=== PATIENT | male | born 1965 | race Caucasian/White ===

== ENCOUNTER 2020-11-05 07:52 | Outpatient (REF) | payer BC, SELFPAY ==
[2020-11-05 11:43] LABS: Estimated Average Glucose 100 mg/dL; Hemoglobin A1c % 5.1 %
[2020-11-05 11:47] LABS: Cholesterol 267 mg/dL; Glucose Fasting 104 mg/dL (60-99); HDL Cholesterol 70 mg/dL; LDL Cholesterol Calculated 179 mg/dl; Triglycerides 92 mg/dL
[2020-11-05 12:42] LABS: Reflex LDLD? No
== END 2020-11-05 07:53 | disposition home or self-care (01) ==
LOC: HO.HMGCLDS 07:52
PROVIDERS: PCP Internal Medicine; Visit Provider Internal Medicine
DX: E78.00 Pure hypercholesterolemia, unspecified (principal); R73.09 Other abnormal glucose
CPT/HCPCS: 80061; 82947; 83036

== ENCOUNTER 2021-05-11 09:44 | Outpatient (REF) | payer BC, SELFPAY ==
[2021-05-11 09:47] LABS: MANUAL DIFF FLAG NO
[2021-05-11 10:13] LABS: Basophils Percent Auto 0.8 % (0-2); Eosinophils Absolute Auto 0.1 X10*3/uL (0.0-0.4); Eosinophils Percent Auto 3.4 % (0-4); Hemoglobin 14.9 g/dl (14.0-18.0); Imm Gran Abs Auto 0.01 X10*3/uL (0.00-0.03); Imm Gran Pct Auto 0.3 % (0.0-0.4); Lymphocytes Absolute Auto 1.1 X10*3/uL (1.2-4.9); Lymphocytes Percent Auto 27.7 % (20-40); Mean Corpuscular HGB Conc 33.9 g/dl (31.0-36.0); Mean Corpuscular Hemoglobin 30.3 pg (27.0-33.0); Mean Corpuscular Volume 89.6 fL (80-98); Mean Platelet Volume 9.8 fL (9.4-12.4); Monocytes Absolute Auto 0.3 X10*3/uL (0.1-1.2); Monocytes Percent Auto 8.4 % (2-11); Neutrophils Absolute Auto 2.3 X10*3/uL (2.0-8.3); Neutrophils Percent Auto 59.4 % (45-73); Platelet Count 271 X10*3/uL (160-400); Red Blood Count 4.91 X10*6/uL (4.60-5.80); Red Cell Distribution Width 12.4 % (11.0-16.0); White Blood Count 3.8 X10*3/uL (4.8-10.8)
[2021-05-11 10:27] LABS: Estimated Average Glucose 103 mg/dL; Hemoglobin A1c % 5.2 %
[2021-05-11 11:01] LABS: Glucose Urine UA NEG (NEG); Leukocyte Esterase Urine NEG (NEG); Nitrite Urine NEG (NEG); PH 6.5 (5.0-8.0); Urine Blood NEG (NEG); Urine Ketones NEG (NEG); Urine Protein NEG (NEG-TRACE)
[2021-05-11 11:04] LABS: Appearance Urine CLEAR; Color Urine YELLOW
[2021-05-11 11:19] LABS: Alanine Aminotransferase 19 U/L (0-40); Albumin Level 4.3 g/dL (3.5-5.0); Alkaline Phosphatase 68 U/L (39-117); Anion Gap 14 (12-20); Aspartate Amino Transferase 19 U/L (5-37); Bilirubin Total 0.7 mg/dL (0.0-1.0); Blood Urea Nitrogen 18 mg/dL (9-16); Calcium 9.1 mg/dL (8.4-10.2); Carbon Dioxide 25 mmol/L (22-29); Chloride 105 mmol/L (96-108); Cholesterol 253 mg/dL; Estimated Glomerular Filt Rate > 60; Glucose Fasting 128 mg/dL (60-99); HDL Cholesterol 86 mg/dL; LDL Cholesterol Calculated 148 mg/dl; Potassium 4.6 mmol/L (3.3-5.1); Sodium 139 mmol/L (135-145); Total Protein 6.8 g/dL (6.5-8.0); Triglycerides 96 mg/dL
[2021-05-11 11:40] LABS: PSA,Total (Free>4and<10) 0.47 ng/mL (0.00-4.00)
[2021-05-11 11:47] LABS: Creatinine Urine 235.53 mg/dL; Microalbum/Creatinine Ratio Ur 3.8 ug/mg cr
== END 2021-05-11 09:45 | disposition home or self-care (01) ==
LOC: HO.LNP 09:44
PROVIDERS: Visit Provider Internal Medicine
DX: Z00.00 Encounter for general adult medical examination without abnormal findings (principal); Z12.5 Encounter for screening for malignant neoplasm of prostate; I10 Essential (primary) hypertension; R73.03 Prediabetes; E78.00 Pure hypercholesterolemia, unspecified
CPT/HCPCS: 80053; 80061; 81003; 82043; 83036; 84153; 85025

== ENCOUNTER 2021-07-02 12:18 | Emergency (ER) | payer BC, SELFPAY ==
--- NOTE | ~2021-07-02 | XR_ITS ---
EXAMINATION: XR RIBS, LEFT CLINICAL INFORMATION: Trauma, pain COMPARISON: Chest radiographs 07/01/2009 TECHNIQUE: Frontal view chest and 3 views left ribs are obtained for 4 views. FINDINGS: There is an oblique fracture involving the left posterior lateral 9th rib only visible on one of the rib films. No significant displacement. No destructive process. The remainder of the ribs appear intact. The lungs are clear. There is no pneumothorax or pleural reaction. No infiltrate or effusion. The heart is normal in size. Tapering at the cardiophrenic angles is similar to prior remote chest 2009. The hilar and mediastinal contours are unremarkable. No free air beneath the diaphragms. XR/XR ribs LT min 3V w CXR1V IMPRESSION: 1. Fracture left posterior lateral 9th rib. 2. Lungs clear. No pneumothorax, infiltrate, or effusion.
[2021-07-02 13:04] VITALS: BP 131/99; PULSE 76; RESP 16; TEMP 36.9; O2SAT 96; BMI 26.3
--- NOTE | 2021-07-02 13:59 | ED_ITS ---
HPI - General Adult General Chief complaint: General Medical Stated complaint: pt might have broken ribs Time Seen by Provider: 07/02/21 13:52 Source: patient Mode of arrival: ambulatory Limitations: no limitations History of Present Illness HPI narrative: Patient presents to ED for left posterior rib pain. Patient states on Monday while playing baseball he was hit with a baseball due to a pitch. Patient states pain ever since with range of motion. Patient denies any other trauma. Patient denies coughing up blood Related Data Previous Rx's Medication Instructions Recorded naproxen 500 mg tablet 500 mg PO BID PRN #20 tab 07/02/21 tramadol 50 mg tablet 50 mg PO Q6H PRN #12 tab 07/02/21 Allergies Allergy/AdvReac Type Severity Reaction Status Date / Time codeine [CODEINE] Allergy Intermediate VOMITING Verified 07/02/21 13:07 Review of Systems Review of Systems: Yes all other systems are reviewed and are negative Constitutional: Constitutional: Reports as per HPI and Reports no additional constitutional complaints Eyes: Eyes: Reports as per HPI and Reports no additional eye complaints ENT: Reports system reviewed and no additional complaints, except as documented and Reports as per HPI Cardiovascular: Cardiovascular: Reports as per HPI and Reports no additional cardiovascular complaints Comments: Posterior rib pain Respiratory: Respiratory: Reports as per HPI and Reports no additional respiratory complaints Gastrointestinal: Gastrointestinal: Reports as per HPI and Reports no additional gastrointestinal complaints Musculoskeletal: Musculoskeletal: Reports no additional musculoskeletal complaints and Reports as per HPI Neurologic: Reports system reviewed and no additional complaints, except as documented and Reports as per HPI Psychiatric: Psychiatric: Reports no additional psychiatric complaints and Reports as per HPI [facility] Past Medical History Medical History (Updated 07/02/21 @ 14:07 by MARLEE Mosher) Hypertension No known health problems Social History Social History Advance Directives: Yes Advance Directives Information Provided: Yes Advance Directives on File: No Physical Exam Vital Signs: Vital Signs: Last Vital Signs Temp 98.4 F 07/02/21 13:04 Pulse 76 07/02/21 13:04 Resp 16 07/02/21 13:04 BP 131/99 H 07/02/21 13:04 Pulse Ox 96 07/02/21 13:04 Body Mass Index 26.3 Const: General: cooperative, healthy appearing, comfortable, no acute distress, well developed, alert, awake and Physically active Orientation/consciousness: patient oriented x3 HENMT: Head: Yes normal to inspection, Yes No palpable skull fracture present, Yes normocephalic, Yes atraumatic and No abrasion Eyes: General: appearance normal, both eyes and all related structures Neck: Neck: Yes normal visual inspection, Yes full ROM, Yes no lymphadenopathy, Yes no meningeal signs, Yes trachea midline, Yes supple and No tender Chest: Chest palpation & inspection: normal inspection of the chest and normal palpation of entire chest wall Resp: Effort & Inspection: normal respiratory effort and able to speak in complete sentences Auscultation: clear to auscultation bilaterally Cardio: Jugular venous distension: no JVD Heart sounds: S1 normal heart sound present and S2 normal heart sound present GI: Inspection: Yes normal to inspection and No abdominal wall ecchymosis Palpation (GI): Soft to palpation, not firm, nontender, no guarding and not rigid : General: Yes no CVA tenderness Back/Spine/Pelvis: Back: no CVA tenderness and back tenderness (Left posterior rib pain) Back/spine/pelvis image: 1. Positive for tenderness and ecchymosis. Negative for crepitus or obvious deformity on palpation Skin: Other: Left posterior rib ecchymosis General skin exam: no rashes or lesions noted and elasticity normal Neuro: General: patient oriented x3, gait normal, no meningeal signs and CN's II-XI intact bilaterally Cranial nerves: Yes CN's II-XII intact bilaterally Extrem: General: Yes normal to inspection and Yes full ROM Psych: Appearance: grossly normal, well kempt and not disheveled Course Course Course Narrative: Patient sent for x-ray. Reevaluation(s) Reevaluation #1: X-ray shows left 9th rib fracture. Patient to be discharged with incentive spirometry and pain meds Time: 14:06 Medical Decision Making [facility] Narrative Medical decision making narrative: Rib fracture Discharge Plan Discharge Clinical Impression: Fracture of rib Patient Disposition: Home, Self-Care Instructions: Rib Fracture (ED) Additional Instructions: X-ray shows you have a rib fracture. Please use the incentive spirometer every hour to prevent lungs collapse. Return to the ED immediately for any worsening chest pain, coughing up blood, abdominal pain, shortness of breath, or any other concerning symptoms. Please follow-up with PCP Prescriptions: New tramadol 50 mg tablet 50 mg PO Q6H PRN (Reason: pain) Qty: 12 RF: 0 naproxen 500 mg tablet 500 mg PO BID PRN (Reason: pain) Qty: 20 RF: 0 Print Language: Hungarian
== END 2021-07-02 14:35 | disposition home or self-care (01) ==
PROVIDERS: Emergency Provider Emergency Medicine Emergency Medical Services; PCP Internal Medicine
DX: S22.32XA Fracture of one rib, left side, initial encounter for closed fracture (principal); W21.03XA Struck by baseball, initial encounter; Y93.64 Activity, baseball; Y92.9 Unspecified place or not applicable; Y99.9 Unspecified external cause status
CPT/HCPCS: 71101; 99283

== ENCOUNTER 2023-01-02 10:35 | Outpatient (REF) | payer BC, SELFPAY ==
[2023-01-02 10:40] LABS: MANUAL DIFF FLAG NO
[2023-01-02 11:21] LABS: Basophils Percent Auto 0.9 % (0-2); Eosinophils Absolute Auto 0.1 X10*3/uL (0.0-0.4); Hematocrit 47.2 % (42.0-52.0); Imm Gran Abs Auto 0.01 X10*3/uL (0.00-0.03); Imm Gran Pct Auto 0.2 % (0.0-0.4); Lymphocytes Absolute Auto 1.1 X10*3/uL (1.2-4.9); Lymphocytes Percent Auto 25.4 % (20-40); Mean Corpuscular HGB Conc 33.9 g/dl (31.0-36.0); Mean Corpuscular Volume 88.6 fL (80.0-98.0); Mean Platelet Volume 9.5 fL (9.4-12.4); Monocytes Absolute Auto 0.3 X10*3/uL (0.1-1.2); Monocytes Percent Auto 7.6 % (2-11); Neutrophils Absolute Auto 2.8 x10*3/uL (2.0-8.3); Neutrophils Percent Auto 62.9 % (45-73); Platelet Count 286 X10*3/uL (160-400); Red Blood Count 5.33 X10*6/uL (4.60-5.80); Red Cell Distribution Width 12.9 % (11.0-16.0); White Blood Count 4.4 X10*3/uL (4.8-10.8)
[2023-01-02 11:55] LABS: Appearance Urine Clear; Color Urine Yellow; Glucose Urine UA Negative (Negative); Leukocyte Esterase Urine Negative (Negative); Nitrite Urine Negative (Negative); PH 5.5 (5.0-9.0); Specific Gravity - Urine 1.025 (1.005-1.025); Urine Blood Negative (Negative); Urine Ketones Negative (Negative); Urine Protein Negative (Neg-Trace)
[2023-01-02 12:08] LABS: Estimated Average Glucose 100 mg/dL; Hemoglobin A1c % 5.1 %
[2023-01-02 12:22] LABS: Creatinine Urine 215.73 mg/dL; Microalbum/Creatinine Ratio Ur 3.2 ug/mg cr
[2023-01-02 12:34] LABS: Alanine Aminotransferase 18 U/L (0-40); Albumin Level 4.4 g/dL (3.5-5.0); Alkaline Phosphatase 66 U/L (39-117); Anion Gap 11 (12-20); Aspartate Amino Transferase 18 U/L (5-37); Bilirubin Total 0.9 mg/dL (0.0-1.0); Blood Urea Nitrogen 16 mg/dL (9-16); Calcium 9.3 mg/dL (8.4-10.2); Carbon Dioxide 28 mmol/L (22-29); Chloride 105 mmol/L (96-108); Cholesterol 273 mg/dL; Estimated Glomerular Filt Rate > 60; Glucose Fasting 113 mg/dL (60-99); HDL Cholesterol 76 mg/dL; LDL Cholesterol Calculated 182 mg/dl; Potassium 4.3 mmol/L (3.3-5.1); Sodium 140 mmol/L (135-145); Triglycerides 75 mg/dL
[2023-01-02 12:38] LABS: PSA,Total (Free>4and<10) 0.56 ng/mL (0.00-4.00)
== END 2023-01-02 10:36 | disposition home or self-care (01) ==
LOC: HO.LNP 10:35
PROVIDERS: Visit Provider Internal Medicine
DX: Z00.00 Encounter for general adult medical examination without abnormal findings (principal); Z12.5 Encounter for screening for malignant neoplasm of prostate; I10 Essential (primary) hypertension; R73.03 Prediabetes; E78.00 Pure hypercholesterolemia, unspecified
CPT/HCPCS: 80053; 80061; 81003; 82043; 83036; 84153; 85025

== ENCOUNTER 2023-02-23 07:22 | Emergency (ER) | payer BC, SELFPAY ==
--- NOTE | ~2023-02-23 | CT_ITS ---
EXAMINATION: CT CHEST WITHOUT CONTRAST CLINICAL INFORMATION: Right-sided traumatic pain COMPARISON: None available. TECHNIQUE: Multidetector volumetric CT imaging of the chest was done. Axial MIP volume rendering provided. Sagittal and coronal reformatted images were obtained. This CT examination was performed using dose optimization techniques as appropriate, variously including the following: *Automated exposure control *Adjustment of mA and/or kV according to patient size (this includes techniques or standardized protocols for targeted exams where dose is matched to indication/reason for exam; i.e. extremities or head) *Use of iterative reconstruction technique DLP: 304 mGy-cm FINDINGS: LUNGS/PLEURA: Groundglass focus versus atelectasis along the posterior aspect of the left upper lobe/left major fissure (series 5, image 110) measuring 7 mm. 3 mm subpleural nodule in the lateral aspect of the lingula (series 5, image 290). Central airways are patent. No pneumothorax. Left basilar atelectasis. No large pleural effusion. MEDIASTINUM: Heart is not enlarged. No pericardial effusion. Very mild coronary artery calcium lesions are noted. Aorta is nonaneurysmal. Main pulmonary artery is not enlarged. No enlarged lymph nodes per size criteria. Visualized portions of the thyroid are unremarkable AXILLA: No lymphadenopathy. UPPER ABDOMEN: Unremarkable. OSSEOUS STRUCTURES: Mildly displaced fracture involving the right posterior sixth rib (series 5, image 148). CT/CT chest wo IV con IMPRESSION: 1. Mildly displaced fracture involving the right posterior sixth rib. 2. Groundglass focus versus atelectasis along the posterior aspect of the left upper lobe/left major fissure measuring 7 mm. 3 mm subpleural nodule in the lateral aspect of the lingula. Follow-up as per Fleischner criteria. Various management parameters for solitary pulmonary nodules are in the literature. According to the Fleischner Society, recommendations for pulmonary nodules are as follows: According to the UPDATED 2017 Fleischner Society recommendations, the advised follow-up imaging for solid nodules < 6 mm is: LOW RISK PATIENT: No routine follow-up. HIGH RISK PATIENT: Optional CT at 12 months.
[2023-02-23 07:39] VITALS: BP 142/89; PULSE 73; RESP 18; TEMP 36.6; O2SAT 99; BMI 26.3
--- NOTE | 2023-02-23 07:44 | PC.NURSE ---
Pt is alert/oriented. Reports fall while snowboarding Monday with persistent right side chest/rib pain unrelieved by rest and motrin. Breathing even/unlabored with clear lung sounds throughout. Skin pwd. Speaking full sentences. Awaiting ED provider
[2023-02-23 08:13] VITALS: BP 147/87; PULSE 68; RESP 17; O2SAT 98
--- NOTE | 2023-02-23 08:36 | ED_ITS ---
HPI - General Adult General Chief complaint: Fall Stated complaint: broken ribs? / fell couple days ago Time Seen by Provider: 02/23/23 08:02 Source: patient Mode of arrival: ambulatory Limitations: no limitations History of Present Illness HPI narrative: 57-year-old male presents after an accidental fall while snowboarding. He fell onto the right side of his body. Since then he has had intermittent right chest and upper back pain. Pain has been moderate. It is worse with movement and palpation. He has been taking ibuprofen successfully with relief. He denies any radiation, shortness of breath, cough or mucus production. Denies any other injuries. Over the past 24 hours, however, he heard a cracking sensation in developed some shortness of breath with deep inspiration, more severe pain rated as 7 to 8/10. Pain is worse with movement. Does not radiate. He denies any new falls or injuries. Prior treatment included ibuprofen just prior to arrival which moderate is pain to a 4/10. Related Data Previous Rx's Medication Instructions Recorded naproxen 500 mg tablet 500 mg PO BID PRN pain #20 tabs 07/02/21 tramadol 50 mg tablet 50 mg PO Q6H PRN pain #12 tabs 07/02/21 oxycodone 5 mg tablet 5 mg PO Q8H PRN pain #10 tabs 02/23/23 Allergies Allergy/AdvReac Type Severity Reaction Status Date / Time codeine [CODEINE] Allergy Intermediate VOMITING Verified 07/02/21 13:07 [facility] Past Medical History Medical History Hypertension No known health problems Social History Social History Alcohol intake: current Smoked in Last 30 Days: No Use of substances other than those prescribed or required for medical reasons: Yes Substance Use Type: Marijuana Advance Directives: No Advance Directives Information Provided: Yes Physical Exam ED Vital Signs: Vital Signs - 24 hr 02/23/23 07:39 02/23/23 08:13 02/23/23 10:10 Temperature 97.8 F Pulse Rate 73 68 59 Respiratory Rate 18 17 19 Blood Pressure 142/89 H 147/87 H 134/83 Pulse Oximetry 99 98 99 Oxygen Delivery Method Room Air Room Air Room Air BMI result Body Mass Index 26.3 GEN: Well developed, no acute distress, alert, oriented HEENT: Normocephalic, atraumatic, normal external ears, nose appears normal, no oropharyngeal edema or exudates Eyes: Normal to appearance Neck: Supple, no lymphadenopathy Respiratory: Talks in complete sentences, no respiratory distress, clear to a uscultation bilaterally Cardiovascular: Regular rate and rhythm, no murmurs rubs or gallops Abdomen: Soft, nontender, nondistended, no guarding, no rebound Back: No CVA tenderness Extremities: No clubbing cyanosis or edema Neurologic: No focal neurologic deficits, cranial nerves 2-12 intact, strength is 5/5 bilaterally, gait normal Skin: No rash Chest: Anterior upper chest wall tenderness to palpation as well as right paraspinous and trapezius tenderness Course Course Course Narrative: 57-year-old male presents with acute traumatic pain. Examination revealed tenderness to palpation. His lungs were clear to auscultation bilaterally. Doubt pneumothorax or pulmonary contusion. However, given acute exacerbation of pain from his trauma, will obtain a CT scan to rule out pulmonary contusion, rib fracture, chest wall contusion, chest wall pain, rib fracture. Patient does not want any analgesics at this time Reevaluation(s) Reevaluation #1: Discussed results with patient. Aware of the pulmonary nodule. Time: 10:31 Medical Decision Making Medical Decision Making MDM Narrative: 57-year-old male presents with 1 week of traumatic chest pain and back pain. Examination revealed tenderness to palpation. Otherwise, patient was no acute distress, hemodynamically stable, normal oxygen saturation. I suspect patient has either rib fracture or chest wall contusion. However, given the acute exacerbation of pain, will obtain a CT scan to rule out pneumothorax, pulmonary contusion or other more significant etiology of his symptoms. Patient does not wish for any analgesics at this time. He did take ibuprofen just prior to arrival. We can give patient Tylenol if need be. Differential Diagnosis Differential Diagnoses: The differential diagnosis associated with the presentation includes (Fracture, contusion, pulmonary contusion, hematoma, musculoskeletal pain, costochondritis, strain, sprain) Pulmonary nodule, rib fracture Admission/Observation Consideration of admission/observation: Escalation of care including admission/observation considered Independent Interpretation I performed an independent interpretation of an: CT Scan (No pneumothorax or pulmonary contusion) Radiology Impression Discussion of test interpretation with radiology: I have reviewed the radiologist's reading. ( CT/CT chest wo IV con IMPRESSION: 1. Mildly displaced fracture involving the right posterior sixth rib. 2. Groundglass focus versus atelectasis along the posterior aspect of the left upper lobe/left major fissure measuring 7 mm. 3 mm subpleural nodule in the lateral aspect of th) Prescription Management I considered prescription management with: Pain Medication Discharge Plan Discharge Clinical Impression: Blunt chest trauma, Fracture of rib, Pulmonary nodule Patient Disposition: Home, Self-Care Instructions: Rib Fracture (ED), Pulmonary Nodules (ED), Blunt Chest Trauma (ED) Prescriptions: New oxycodone 5 mg tablet 5 mg PO Q8H PRN (Reason: pain) Qty: 10 0RF Rx Instructions: Partial Fill upon patient request. No Action tramadol 50 mg tablet 50 mg PO Q6H PRN (Reason: pain) Qty: 12 0RF naproxen 500 mg tablet 500 mg PO BID PRN (Reason: pain) Qty: 20 0RF Referrals: Parviz Hair MD [Primary Care Provider] - 1 week
--- NOTE | 2023-02-23 09:26 | PC.NURSE ---
Pt returned to room from CT scan, no acute changes, awaits results
[2023-02-23 10:10] VITALS: BP 134/83; PULSE 59; RESP 19; O2SAT 99
== END 2023-02-23 11:06 | disposition home or self-care (01) ==
PROVIDERS: Emergency Provider Emergency Medicine; PCP Internal Medicine
DX: S20.211A Contusion of right front wall of thorax, initial encounter (principal); S22.31XA Fracture of one rib, right side, initial encounter for closed fracture; W17.81XA Fall down embankment (hill), initial encounter; R91.1 Solitary pulmonary nodule; I10 Essential (primary) hypertension; Y93.23 Activity, snow (alpine) (downhill) skiing, snowboarding, sledding, tobogganing and snow tubing; Y92.828 Other wilderness area as the place of occurrence of the external cause; Y99.9 Unspecified external cause status
CPT/HCPCS: 71250; 99284

== ENCOUNTER 2023-07-10 13:58 | Outpatient (REF) | payer BC, SELFPAY ==
[2023-07-10 14:48] LABS: Cholesterol 278 mg/dL; HDL Cholesterol 86 mg/dL; LDL Cholesterol Calculated 177 mg/dl; Triglycerides 79 mg/dL
== END 2023-07-10 13:59 | disposition home or self-care (01) ==
LOC: HO.LNP 13:58
PROVIDERS: Visit Provider Internal Medicine
DX: E78.00 Pure hypercholesterolemia, unspecified (principal)
CPT/HCPCS: 80061

== ENCOUNTER 2023-09-22 12:15 | Outpatient (REF) | payer BC, SELFPAY ==
[2023-09-22 14:48] LABS: Blood Urea Nitrogen 12 mg/dL (9-16); Estimated Glomerular Filt Rate > 60
== END 2023-09-22 12:16 | disposition home or self-care (01) ==
LOC: HO.LNP 12:15
PROVIDERS: Visit Provider Internal Medicine
DX: I10 Essential (primary) hypertension (principal)
CPT/HCPCS: 82565; 84520

== ENCOUNTER 2023-09-29 07:50 | Outpatient (REF) | payer BC, SELFPAY ==
--- NOTE | ~2023-09-29 | CT_ITS ---
EXAMINATION: CT CHEST WITH CONTRAST CLINICAL INFORMATION: Lung nodule COMPARISON: Previous chest CT January 2023 and chest and left rib x-rays from 2010 TECHNIQUE: Multidetector volumetric CT imaging of the chest was obtained after the administration of 65 mL of Omnipaque 350 intravenous contrast without immediate adverse reactions. Axial MIP volume rendering provided. Sagittal and coronal reformatted images were obtained. This CT examination was performed using dose optimization techniques as appropriate, variously including the following: *Automated exposure control *Adjustment of mA and/or kV according to patient size (this includes techniques or standardized protocols for targeted exams where dose is matched to indication/reason for exam; i.e. extremities or head) *Use of iterative reconstruction technique DLP: 149 mGy-cm FINDINGS: SOFTWARE DEVELOPMENT COORDINATOR: Unremarkable LUNGS: 3 mm nodule in the lingula axial image 139 series 5. The lungs are otherwise clear. Previously identified atelectatic versus groundglass area in the apical posterior segment of the left upper lobe adjacent to the pleural fissure no longer seen. No endobronchial or endotracheal lesion. MEDIASTINUM: The mediastinum is normal. PLEURA: There is no pleural effusion. No pleural mass or thickening. AXILLA: No lymphadenopathy. UPPER ABDOMEN: Unremarkable OSSEOUS STRUCTURES: Old right rib fractures. CT/CT chest w IV con IMPRESSION: Stable 3 mm lingular pulmonary nodule. Groundglass attenuation versus atelectatic area in the apical posterior segment of the left upper lobe near the pleural fissure no longer seen. According to the UPDATED 2017 Fleischner Society recommendations, chest CT follow-up not recommended. Fleischner guidelines were followed.
[2023-09-29] MEDS: iohexoL 350 MG/ML 100 ML INFUS..BTL IV (08:59)
== END 2023-09-29 07:51 | disposition home or self-care (01) ==
LOC: HO.CT 07:50
PROVIDERS: PCP Internal Medicine; Visit Provider Internal Medicine
DX: R91.1 Solitary pulmonary nodule (principal)
CPT/HCPCS: 71260; Q9967

== ENCOUNTER 2024-05-03 12:56 | Outpatient (REF) | payer BC, SELFPAY ==
[2024-05-03 13:02] LABS: MANUAL DIFF FLAG NO
[2024-05-03 13:29] LABS: Appearance Urine Clear; Color Urine Yellow; Glucose Urine UA Negative (Negative); Leukocyte Esterase Urine Negative (Negative); Nitrite Urine Negative (Negative); Specific Gravity - Urine 1.025 (1.005-1.025); Urine Blood Negative (Negative); Urine Ketones Negative (Negative); Urine Protein Negative (Neg-Trace)
[2024-05-03 13:30] LABS: Eosinophils Absolute Auto 0.1 X10*3/uL (0.0-0.4); Eosinophils Percent Auto 2.9 % (0-4); Hematocrit 43.7 % (42.0-52.0); Hemoglobin 14.7 g/dl (14.0-18.0); Imm Gran Abs Auto 0.02 X10*3/uL (0.00-0.03); Imm Gran Pct Auto 0.5 % (0.0-0.4); Lymphocytes Absolute Auto 1.1 X10*3/uL (1.2-4.9); Lymphocytes Percent Auto 25.9 % (20-40); Mean Corpuscular HGB Conc 33.6 g/dl (31.0-36.0); Mean Corpuscular Hemoglobin 30.7 pg (27.0-33.0); Mean Corpuscular Volume 91.2 fL (80.0-98.0); Mean Platelet Volume 9.5 fL (9.4-12.4); Monocytes Absolute Auto 0.3 X10*3/uL (0.1-1.2); Monocytes Percent Auto 8.2 % (2-11); Neutrophils Absolute Auto 2.6 x10*3/uL (2.0-8.3); Neutrophils Percent Auto 61.5 % (45-73); Platelet Count 273 X10*3/uL (160-400); Red Blood Count 4.79 X10*6/uL (4.60-5.80); Red Cell Distribution Width 12.7 % (11.0-16.0); White Blood Count 4.2 X10*3/uL (4.8-10.8)
[2024-05-03 13:32] LABS: Bacteria Urine None Seen (None Seen); Hyaline Casts Urine 0-2 /LPF (0-2); RBC Urine 0-2 /HPF (0-2); Squamous Epithelial Cell Urine 0-2 /HPF (0-2); WBC Urine 0-5 /HPF (0-5)
[2024-05-03 13:39] LABS: Estimated Average Glucose 103 mg/dL; Hemoglobin A1c % 5.2 % (<6.0)
[2024-05-03 13:48] LABS: Alanine Aminotransferase 15 U/L (0-40); Albumin Level 4.1 g/dL (3.5-5.0); Alkaline Phosphatase 64 U/L (39-117); Anion Gap 10 (12-20); Aspartate Amino Transferase 17 U/L (5-37); Bilirubin Total 0.5 mg/dL (0.0-1.0); Blood Urea Nitrogen 14 mg/dL (9-16); Calcium 9.3 mg/dL (8.4-10.2); Carbon Dioxide 29 mmol/L (22-29); Chloride 106 mmol/L (96-108); Cholesterol 231 mg/dL (<200); Estimated Glomerular Filt Rate > 60; Glucose Fasting 103 mg/dL (60-99); HDL Cholesterol 84 mg/dL (>40); LDL Cholesterol Calculated 136 mg/dL (<100); Potassium 4.4 mmol/L (3.3-5.1); Sodium 141 mmol/L (135-145); Total Protein 6.8 g/dL (6.5-8.0); Triglycerides 57 mg/dL (<150)
[2024-05-03 14:03] LABS: PSA,Total (Free>4and<10) 0.84 ng/mL (0.00-4.00)
[2024-05-03 14:20] LABS: Creatinine Urine 175.18 mg/dL; Microalbum/Creatinine Ratio Ur 3.9 ug/mg cr (<30)
== END 2024-05-03 12:57 | disposition home or self-care (01) ==
LOC: HO.LNP 12:56
PROVIDERS: Visit Provider Internal Medicine
DX: Z00.00 Encounter for general adult medical examination without abnormal findings (principal); R73.09 Other abnormal glucose; E78.00 Pure hypercholesterolemia, unspecified; Z12.5 Encounter for screening for malignant neoplasm of prostate; I10 Essential (primary) hypertension
CPT/HCPCS: 80053; 80061; 81001; 82043; 82570; 83036; 84153; 85025

== ENCOUNTER 2025-05-06 09:52 | Outpatient (REF) | payer BC, SELFPAY ==
[2025-05-06 09:54] LABS: MANUAL DIFF FLAG NO
[2025-05-06 10:07] LABS: Appearance Urine Clear; Basophils Absolute Auto 0.1 X10*3/uL (0.0-0.2); Basophils Percent Auto 1.1 % (0-2); Color Urine Yellow; Eosinophils Absolute Auto 0.2 X10*3/uL (0.0-0.4); Eosinophils Percent Auto 3.7 % (0-4); Glucose Urine UA Negative (Negative); Hematocrit 43.3 % (42.0-52.0); Hemoglobin 14.8 g/dl (14.0-18.0); Imm Gran Abs Auto 0.01 X10*3/uL (0.00-0.03); Imm Gran Pct Auto 0.2 % (0.0-0.4); Leukocyte Esterase Urine Negative (Negative); Lymphocytes Absolute Auto 1.1 X10*3/uL (1.2-4.9); Lymphocytes Percent Auto 26.2 % (20-40); Mean Corpuscular HGB Conc 34.2 g/dl (31.0-36.0); Mean Corpuscular Hemoglobin 30.1 pg (27.0-33.0); Mean Platelet Volume 9.6 fL (9.4-12.4); Monocytes Absolute Auto 0.3 X10*3/uL (0.1-1.2); Monocytes Percent Auto 7.6 % (2-11); Neutrophils Absolute Auto 2.7 x10*3/uL (2.0-8.3); Neutrophils Percent Auto 61.2 % (45-73); Nitrite Urine Negative (Negative); Platelet Count 278 X10*3/uL (160-400); Red Blood Count 4.92 X10*6/uL (4.60-5.80); Red Cell Distribution Width 12.2 % (11.0-16.0); Specific Gravity - Urine 1.025 (1.005-1.025); Urine Blood Negative (Negative); Urine Ketones Negative (Negative); Urine Protein Negative (Neg-Trace); White Blood Count 4.4 X10*3/uL (4.8-10.8)
[2025-05-06 10:15] LABS: Bacteria Urine None Seen (None Seen); Hyaline Casts Urine 0-2 /LPF (0-2); RBC Urine 0-2 /HPF (0-2); Squamous Epithelial Cell Urine 0-2 /HPF (0-2); WBC Urine 0-5 /HPF (0-5)
[2025-05-06 10:16] LABS: Estimated Average Glucose 105 mg/dL; Hemoglobin A1c % 5.3 % (<6.0); Total Hemoglobin (HGBA1C) 3937.8288 umol/L
[2025-05-06 10:27] LABS: Alanine Aminotransferase 18 U/L (0-40); Albumin Level 4.2 g/dL (3.5-5.0); Alkaline Phosphatase 66 U/L (39-117); Anion Gap 8 (12-20); Aspartate Amino Transferase 21 U/L (5-37); Bilirubin Total 0.7 mg/dL (0.0-1.0); Blood Urea Nitrogen 14 mg/dL (9-16); Carbon Dioxide 30 mmol/L (22-29); Chloride 106 mmol/L (96-108); Cholesterol 254 mg/dL (<200); Estimated Glomerular Filt Rate > 60; Glucose Fasting 119 mg/dL (60-99); HDL Cholesterol 65 mg/dL (>40); LDL Cholesterol Calculated 162 mg/dL (<100); Potassium 4.4 mmol/L (3.3-5.1); Sodium 140 mmol/L (135-145); Total Protein 6.7 g/dL (6.5-8.0); Triglycerides 135 mg/dL (<150)
[2025-05-06 10:41] LABS: PSA,Total (Free>4and<10) 0.58 ng/mL (0.00-4.00)
[2025-05-06 11:18] LABS: Creatinine Urine 180.97 mg/dL; Microalbum/Creatinine Ratio Ur 3.3 ug/mg cr (<30)
== END 2025-05-06 09:53 | disposition home or self-care (01) ==
LOC: HO.LNP 09:52
PROVIDERS: Visit Provider Internal Medicine
DX: I10 Essential (primary) hypertension (principal); E78.00 Pure hypercholesterolemia, unspecified; R73.09 Other abnormal glucose; Z00.00 Encounter for general adult medical examination without abnormal findings
CPT/HCPCS: 80053; 80061; 81001; 82043; 82570; 83036; 84153; 85025

== ENCOUNTER 2025-08-21 06:52 | Emergency (ER) | payer BC, SELFPAY ==
--- OUTSIDE RECORDS SUMMARY | 2024-05-03 04:15 | XMS_ITS ---
Author Organization Parviz Hair MD Address [address] [place], [place] [id number] Care Team Providers Care Passenger Tire Inspector Name Role Phone ReginaldoParviz Primary Care Provider REASON FOR VISIT Annual labs Encounters Encounter Location Date Provider Diagnosis Parviz Hair MD [address] [place], [place] [phone] 05/03/2024 Parviz Hair Blood tests for rout ine general physical examination Z00.00 ; Essential hypertension I10 ; Prediabetes R73.09 and Pure hypercholesterolemia E78.00 Assessments Encounter Date Diagnosis (ICD Code) Assessment Notes Treatment Notes Treatment Clinical Notes Section Notes 05/03/2024 Blood tests for rout ine general physical examination (ICD-10 - Z00.00) 05/03/2024 Essential hypertensi on (ICD-10 - I10) 05/03/2024 Prediabetes (ICD-10 - R73.09) 05/03/2024 Pure hypercholesterolemia (ICD-10 - E78.00) Plan Of Treatment Next Appt Details Provider Name:Parviz Deutsch ier, 11/13/2025 07:00:00 AM, [address], [address], [place], [phone], Provider Name:Parviz Deutsch ier, 11/17/2025 02:00:00 PM, [address], [address], [place], [place], [phone], Provider Name:Parviz Deutsch ier, 05/14/2026 07:30:00 AM, [address], [address], [place], [place], [id number], Provider Name:Parviz Deutsch ier, 05/21/2026 01:00:00 PM, [address], [address], [place], [place], [id number], Progress Notes * Cullen CHAND JR, MDOB:[birth year] (60 yo M)Acc No.[id number]:05/03/2024 Progress Note Patient: Barbara Cullen LUNDBERG JR Provider: Gaston Hair MD :[id number] A ge:58 Y S ex:Male Date:05/03/2024 Address:[address] [place] [address], [id number] Subjective: * Chief Complaints: * 1 . Annual labs. * Medical History: Objective: * Vitals: Assessment: * Assessment: 1. B lood tests for routine general physical examination - Z00.00 (Primary) 2 .?Essential hypertension - I10 3 . P rediabetes - R73.09 4 .?Pure hypercholesterolemia - E78.00 Plan: * Treatment: 2. E ssential hypertension L AB: Complete Blood Count Auto Diff (Order Cancelled) L AB: Comprehensive [place]. Panel Fast (Order Cancelled) L AB: Lipid Panel (Order Cancelled) L AB: PSA,Total (Free>4and<10) (Order Cancelled) L AB: Microalbumin, Random (Order Cancelled) L AB: Hemoglobin A1c (Order Cancelled) L AB: UA ClnCatch+Micro w/rflx Cult (Order Cancelled) 3. P rediabetes L AB: Complete Blood Count Auto Diff (Order Cancelled) L AB: Comprehensive [place]. Panel Fast (Order Cancelled) L AB: Lipid Panel (Order Cancelled) L AB: PSA,Total (Free>4and<10) (Order Cancelled) L AB: Microalbumin, Random (Order Cancelled) L AB: Hemoglobin A1c (Order Cancelled) L AB: UA ClnCatch+Micro w/rflx Cult (Order Cancelled) 4. P ure hypercholesterolemia L AB: Complete Blood Count Auto Diff (Order Cancelled) L AB: Comprehensive [place]. Panel Fast (Order Cancelled) L AB: Lipid Panel (Order Cancelled) L AB: PSA,Total (Free>4and<10) (Order Cancelled) L AB: Microalbumin, Random (Order Cancelled) L AB: Hemoglobin A1c (Order Cancelled) L AB: UA ClnCatch+Micro w/rflx Cult (Order Cancelled) * Procedure Codes: 3 6415 VENIPUNCT, ROUTINE* * * The named appointment provid er may or may not be the originator of this progress note, and it is not deemed complete until electronically signed by the appointment provider. Sign off status: Pending * Provider: Gaston Hair MD Date: 0 05/03/2024 Generated for Mary Jane ott/Spike/Nate on: 0 08/21/2025 07:23 AM EDT
--- OUTSIDE RECORDS SUMMARY | 2024-05-10 09:00 | XMS_ITS ---
Author Organization Parviz Hair MD Address [address] [place], [place] [id number] Care Team Providers Care Medicine Man Name Role Phone JimParviz rouse Primary Care Provider Allergies Allergen (clinical drug ingredient) Drug/Non Drug Allergy documented on EMR Reaction Allergy Type Onset Date Status codeine codeine (uncoded) vomiting Allergy Ac tive Results Component Value Reference Range Notes Occult Blood, Stool, Guaiac Reviewed date:05/10/2024 01:45:45 PM Interpretation:Negative Performing Lab: Notes/Report: Negative Occult Blood, Stool, Guaiac Neg REASON FOR VISIT Annual Medications Medication SIG (Take, Route, Frequency, Duration) Notes Start Date End Date Status Ibuprofen 200 MG 3 tablet with food o r milk as needed Orally Three times a day Active Valsartan-hydroCHLOROthi azide 160-12.5 MG TAKE 1 TABLET BY MOUTH EVERY DAY Active Ventolin HFA * 108 (90 Base) MCG/ACT 2 puffs as needed Inhalation every 4 hrs for 30 day(s) 04/26/2016 Not-Taking Omeprazole 20 MG 1 capsule Orally Onc e a day Not-Taking traMADol HCl 50 MG 1 tablet as needed Orally 2 times a day for 14 days 07/08/2021 Not-Taking Social History Tobacco Use: Social History Observation Description Date Details (start date - stop date) Never Smoker NA - NA Tobacco Use/Smoking Question Answer Notes Patient is a nonsmoker Additional Findings: Tobacco Non-User Cu rrent non-smoker, currently using no form of tobacco Alcohol Screen Question Answer Notes Did you have a drink contain ing alcohol in the past year? Yes How often did you have a dri nk containing alcohol in the past year? Monthly or less (1 point) How many drinks did you have on a typical day when you were drinking in the past year? 1 or 2 drinks (0 point) How often did you have 6 or more drinks on one occasion in the past year? Never (0 point) Points 1 Interpretation Negative Vital Signs Blood pressure systolic 126 mm Hg 05/10/20 24 Blood pressure diastolic 60 mm Hg 024 Height 66 in 05/10/2024 Weight 170 lbs 05/10/2024 BMI 27.44 kg/m2 05/10/2024 Encounters Encounter Location Date Provider Diagnosis Parviz Hair MD [address] [place] [address] [place] [phone] 05/10/2024 Parviz Hair Pure hypercholestero lemia E78.00 ; Annual physical exam Z00.00 ; Essential hypertension I10 ; Dermatofibroma D23.9 ; Prediabetes R73.09 ; Colon cancer screening Z12.11 and Depression screening Z13.31 Assessments Encounter Date Diagnosis (ICD Code) Assessment Notes Treatment Notes Treatment Clinical Notes Section Notes 05/10/2024 Pure hypercholesterolemia (ICD-10 - E78.00) doing much better on oatmeal, will continue, no need for medication at this time 05/10/2024 Annual physical exam (ICD-10 - Z00.00) labs reviewed and discussed with patient 05/10/2024 Essential hypertensi on (ICD-10 - I10) doing great on meds, will continue current regiment 05/10/2024 Dermatofibroma (ICD- 10 - D23.9) 05/10/2024 Prediabetes (ICD-10 - R73.09) stable, no need for medication at this time 05/10/2024 Colon cancer screeni ng (ICD-10 - Z12.11) guaiac negtive 05/10/2024 Depression screening (ICD-10 - Z13.31) negative screen Plan Of Treatment Medication Medication Name Sig Start Date Stop Date Notes Valsartan-hydroCHLOROthiazid e 160-12.5 MG TAKE 1 TABLET BY MOUTH EVERY DAY Treatment Notes Assessment Notes Pure hypercholesterolemia doing much bet ter on oatmeal, will continue, no need for medication at this time Annual physical exam labs reviewed and d iscussed with patient Essential hypertension doing great on me ds, will continue current regiment Prediabetes stable, no need for medication at this time Colon cancer screening guaiac negtive Depression screening negative screen Next Appt Details Follow Up: 1 Year, Reason: Provider Name:Parviz curtis, 11/13/2025 07:00:00 AM, [address] [place] [address], [address], [phone], Provider Name:Parviz curtis, 11/17/2025 02:00:00 PM, [address] [place] [address], [address], [phone], Provider Name:Parviz curtis, 05/14/2026 07:30:00 AM, [address] [place] [address], [address], [phone], Provider Name:Parviz curtis, 05/21/2026 01:00:00 PM, [address] [place] [address], [address], [phone], Progress Notes * Cullen CHAND JR, MDOB:[birth year] (58 yo M)Acc No.[id number]:05/10/2024 Progress Notes Patient: S Cullen cintron Jr Provider: Gaston Hair MD :1965 A ge:58 Y S ex:Male Date:05/10/2024 Address:[address] [place] [address], [id number] Subjective: * Chief Complaints: * A nnual * HPI: D epression Screening: PHQ-9 L ittle interest or pleasure in doing things N ot at all, F eeling down, depressed, or hopeless N ot at all, T rouble falling or staying asleep, or sleeping too much N ot at all, F eeling tired or having little energy N ot at all, P oor appetite or overeating N ot at all, F eeling bad about yourself or that you are a failure, or have let yourself or your family down N ot at all, T rouble concentrating on things, such as reading the newspaper or watching television N ot at all, M oving or speaking so slowly that other people could have noticed; or the opposite, being so fidgety or restless that you have been moving around a lot more than usual N ot at all, T houghts that you would be better off or of hurting yourself in some way N ot at all, T otal Score 0 . I nterpretation and Intervention D epression Screening Findings N egative, F ollow-Up for Depression : review of PHQ-9 found negative result, no follow-up needed. patient is a 58 yo male here for yearly evaluation with review of recent labs and follow up of chronic issues. is doing well had some skin lesions removed. C ommunication Needs: Communication Needs D oes the patient have a hearing impairment N o, D oes the patient have a vision impairment? Y es, I f yes, what is the vision impairment? G lasses, D oes the patient have a cognition impairment? N o. F all Risk: History H ave you had any falls with injury in the past year? N o, H ave you had two or more falls in the past year? N o. S LEONARDA Questions: SDOH Questions I n the past year have you been worried about losing housing? N o, I n the past year have you or any family members you live with been unable to get any of the following when it was really needed? Check all that apply: N one. * ROS: G eneral/Constitutional: Change in appetite d enies. C hills d enies. F ever d enies. O phthalmologic: Blurred vision d enies. D ischarge d enies. P ain d enies. E NT: Decreased hearing d enies. S ore throat d enies.?Swollen glands d enies. E ndocrine: Cold intolerance d enies. E xcessive thirst d enies. H eat intolerance d enies. W eight loss d enies. R espiratory: Cough d enies. S hortness of breath at rest d enies. S hortness of breath with exertion d enies. W heezing d enies. C ardiovascular: Chest pain at rest d enies. C hest pain with exertion?denies. I rregular heartbeat d enies. S hortness of breath d enies. ? G astrointestinal: Abdominal pain d enies. C hange in bowel habits d enies. D iarrhea d enies. N ausea d enies. R ectal bleeding d enies. V omiting d enies . G enitourinary: Blood in urine d enies. D ifficulty urinating d enies. F requent urination d enies. M usculoskeletal: Painful joints d enies. W eakness d enies. ? S kin: Dry skin d enies. I tching d enies. D enies?Mole(s), changes in moles, new moles or any lesions of concern. D enies P hotosensitivity. R silvina d enies. N eurologic: Dizziness d enies. F ainting d enies. H eadache?denies. * Medical History: * Surgical History: * Hospitalization/Major Diagno stic Procedure: * Family History: F ather: alive 79 yrs, diagnosed with Hypertension. M other: alive 77 yrs, diagnosed with Hypertension. 1 brother(s) , 1 sister(s) . . No mental illness, Family history of issues with drinking., Denies mental health/substance abuse family history, No pertinent family medical history, Denies mental health/substance abuse family history. * Social History: T obacco Use: T obacco Use/Smoking P atient is a n onsmoker, A dditional Findings: Tobacco Non-User C urrent non-smoker, currently using no form of tobacco. D rugs/Alcohol: A lcohol Screen D id you have a drink containing alcohol in the past year? Y es, H ow often did you have a drink containing alcohol in the past year? M onthly or less (1 point), H ow many drinks did you have on a typical day when you were drinking in the past year? 1 or 2 drinks (0 point), H ow often did you have 6 or more drinks on one occasion in the past year? N ever (0 point), P oints 1 , I nterpretation N egative. M iscellaneous: C affeine: yes, frequency:, 1-2 cups per day. no Children. Community involvements: yes. Exercise: yes, 2-3 times per week swim [employer] baseball. Housing: owning. Living with: spouse. Marital status: . Occupation: works full-time. Pets: cat dog chickens. no Travel outside of the [place]. * Medications: T akingIbuprofen 200 MG Tablet 3 tablet with food or milk as needed Orally Three times a dayValsartan-hydroCHLOROthiazide 160-12.5 MG Tablet TAKE 1 TABLET BY MOUTH EVERY DAY Taking Ibuprofen 200 MG Tablet 3 tablet with food or milk as needed Orally Three times a dayTaking Valsartan-hydroCHLOROthiazide 160-12.5 MG Tablet TAKE 1 TABLET BY MOUTH EVERY DAY Not-Taking/PRNtraMADol HCl 50 MG Tablet 1 tablet as needed Orally 2 times a dayOmeprazole 20 MG Capsule Delayed Release 1 capsule Orally Once a dayVentolin HFA * 108 (90 Base) MCG/ACT Aerosol Solution 2 puffs as needed Inhalation every 4 hrsMedication List reviewed and reconciled with the patientNot- Taking/PRN traMADol HCl 50 MG Tablet 1 tablet as needed Orally 2 times a dayNot-Taking/PRN Omeprazole 20 MG Capsule Delayed Release 1 capsule Orally Once a dayNot- Taking/PRN Ventolin HFA * 108 (90 Base) MCG/ACT Aerosol Solution 2 puffs as needed Inhalation every 4 hrsMedication List reviewed and reconciled with the patient * Allergies: c odeine: vomitingyes[Allergies Verified] Objective: * Vitals: H t: 66, Wt:170, BMI:27.44, BP:126/60. * P ast Orders: L ab:UA ClnCatch+Micro w/rflx Cult (Order Date - 05/03/2024) (Collection Date - 05/03/2024) Value Reference Range Color Urine Yellow - Appearance Urine Clear - PH 6.0 5.0-9.0 - Glucose Urine UA Negative Negative - mg/dL Urine Blood Negative Negative - Specific [place] - Urine 1.025 1.005-1.025 - Urine Protein Negative Neg-Trace - mg/dL Urine Ketones Negative Negative - mg/dL Nitrite Urine Negative Negative - Leukocyte Esterase Urine Negative Negative - RBC Urine 0-2 0-2 - /HPF WBC Urine 0-5 0-5 - /HPF Squamous Epithelial Cell Urine 0-2 0-2 - /HP F Bacteria Urine None Seen None Seen - Hyaline Casts Urine 0-2 0-2 - /LPF L ab:Complete Blood Count Auto Diff (Order Date - 05/03/2024) (Collection Date - 05/03/2024) Value Reference Range White Blood Count 4.2 L 4.8-10.8 - X10*3/uL Red Blood Count 4.79 4.60-5.80 - X10*6/uL Hemoglobin 14.7 14.0-18.0 - g/dl Hematocrit 43.7 42.0-52.0 - % Mean Corpuscular Volume 91.2 80.0-98.0 - fL Mean Corpuscular Hemoglobin 30.7 27.0-33.0 - pg Mean Corpuscular HGB Conc 33.6 31.0-36.0 - g/ dl Red Cell Distribution Width 12.7 11.0-16.0 - % Platelet Count 273 160-400 - X10*3/uL Mean Platelet Volume 9.5 9.4-12.4 - fL Neutrophils Percent Auto 61.5 45-73 - % Imm Gran Pct Auto 0.5 H 0.0-0.4 - % Lymphocytes Percent Auto 25.9 20-40 - % Monocytes Percent Auto 8.2 2-11 - % Eosinophils Percent Auto 2.9 0-4 - % Basophils Percent Auto 1.0 0-2 - % NRBC Pct Auto 0.0 0.0-0.2 - /100WBC Neutrophils Absolute Auto 2.6 2.0-8.3 - x10* 3/uL Imm Gran Abs Auto 0.02 0.00-0.03 - X10*3/uL Lymphocytes Absolute Auto 1.1 L 1.2-4.9 - X10* 3/uL Monocytes Absolute Auto 0.3 0.1-1.2 - X10*3/ uL Eosinophils Absolute Auto 0.1 0.0-0.4 - X10* 3/uL Basophils Absolute Auto 0.0 0.0-0.2 - X10*3/ uL NRBC Abs Auto 0.000 0.0-0.012 - X10*3/uL L ab:Hemoglobin A1c (Order Date - 05/03/2024) (Collection Date - 05/03/2024) Value Reference Range Hemoglobin A1c % 5.2 <6.0 - % Estimated Average Glucose 103 - mg/dL L ab:Microalbumin, Random (Order Date 05/03/2024) (Collection Date 05/03/2024) Value Reference Range Creatinine Urine 175.18 - mg/dL Microalbumin Urine 7.0 - mg/L Microalbum Creatinine Ratio Ur 3.9 <30 - ug/ mg cr L ab:PSA,Total (Free>4and<10) (Order Date - 05/03/2024) (Collection Date 05/03/2024) Value Reference Range PSA,Total (Free>4and<10) 0.84 0.00-4.00 - ng/ mL L ab:Lipid Panel (Order Date - 05/03/2024) (Collection Date 05/03/2024) Value Reference Range Triglycerides 57 <150 - mg/dL Cholesterol 231 H <200 - mg/dL LDL Cholesterol Calculated 136 H <100 - mg/dL HDL Cholesterol 84 >40 - mg/dL L ab:Comprehensive [place]. Panel Fast (Order Date 05/03/2024) (Collection Date 05/03/2024) Value Reference Range Sodium 141 135-145 - mmol/L Bilirubin Total 0.5 0.0-1.0 - mg/dL Aspartate Amino Transferase 17 5-37 - U/L Alanine Aminotransferase 15 0-40 - U/L Total Protein 6.8 6.5-8.0 - g/dL Albumin Level 4.1 3.5-5.0 - g/dL Alkaline Phosphatase 64 39-117 - U/L Potassium 4.4 3.3-5.1 - mmol/L Chloride 106 96-108 - mmol/L Carbon Dioxide 29 22-29 - mmol/L Anion Gap 10 L 12-20 - Blood Urea Nitrogen 14 9-16 - mg/dL Creatinine 1.05 0.5-1.4 - mg/dL Estimated Glomerular Filt Rate > 60 - Glucose Fasting 103 H 60-99 - mg/dL Calcium 9.3 8.4-10.2 - mg/dL * Examination: G eneral Examination: GENERAL APPEARANCE: w ell developed, well nourished, in no acute distress. HEAD: n ormocephalic, atraumatic. EYES: p upils equal, round, reactive to light and accommodation, sclera non-icteric. EARS: n ormal. ORAL CAVITY: m ucosa moist. THROAT: c lear. NECK/THYROID: n christina supple, full range of motion, no cervical lymphadenopathy, no bruits. SKIN: w arm and dry, no suspicious lesions. HEART: r egular rate and rhythm, S1, S2 normal, no murmurs.? LUNGS: c lear to auscultation bilaterally. ABDOMEN: s oft, nontender, nondistended, bowel sounds present, normal, no organomegaly , no masses palpable. RECTAL EXAM: n ormal tone, no external hemorrhoids, no masses palpable, prostate normal, stool guaiac negative. MALE GENITOURINARY: n ot examined. EXTREMITIES: n o clubbing, cyanosis, or edema, abnormal rt anterior tibial area has lesion consistant with dermatofibroma. evaluated by derm. NEUROLOGIC: n onfocal, motor strength normal upper and lower extremities, sensory exam intact. Assessment: * Assessment: 1. A nnual physical exam - Z00.00 (Primary) 2 . P ure hypercholesterolemia - E78.00?3. E ssential hypertension - I10 4 . D ermatofibroma - D23.9 5 . P rediabetes - R73.09 6 . C olon cancer screening - Z12.11 7 . D epression screening - Z13.31? Plan: * Treatment: 2. P ure hypercholesterolemia Notes: doing much better on oatmeal, will continue, no need for medication at this time. 3. E ssential hypertension Continue Valsartan-hydroCHLOROthiazide Tablet, 160-12.5 MG, TAKE 1 TABLET BY MOUTH EVERY DAY. ? Notes: doing great on meds, will continue current regiment. 4. P rediabetes Notes: stable, no need for medication at this time. 5. C olon cancer screening L AB: Occult Blood, Stool, Guaiac N egative Value Reference Range O ccult Blood, Stool, Guaiac Neg Notes: guaiac negtive.??6.?Depression screening? Notes: negative screen.?? * Procedure Codes: 8 2270 TEST FOR BLOOD, FECES * Preventive Medicine: Counseling: C are goal follow-up plan: C ounseling for abnormal BMI provided?Yes, A isabell Normal BMI Follow-up G iving encouragement to exercise. * Follow Up: 1 Year * * Sign off status: Completed true * Provider: Gaston Hair MD Date: 0 05/10/2024 Generated for Mary Jane ott/Spike/Nate on: 0 08/21/2025 07:24 AM EDT History and Physical Notes * HPI (History of Present Illness) Category Sub-Category Detail Notes Category Not es Depression Screening PHQ-9 Little inte rest or pleasure in doing things: Not at all patient is a 58 yo male here for yearly evaluation with review of recent labs and follow up of chronic issues. is doing well had some skin lesions removed Feeling down, depressed, or hopeless: No t at all Trouble falling or staying asleep, or sl eeping too much: Not at all Feeling tired or having little energy: N ot at all Poor appetite or overeating: Not at all Feeling bad about yourself o r that you are a failure, or have let yourself or your family down: Not at all Trouble concentrating on thi ngs, such as reading the newspaper or watching television: Not at all Moving or speaking so slowly that other people could have noticed; or the opposite, being so fidgety or restless that you have been moving around a lot more than usual: Not at all Thoughts that you would be b jatin off or of hurting yourself in some way: Not at all Total Score: 0 Interpretation and Intervention Depression Rasheed jay Findings: Negative Follow-Up for Depression: : review of PH Q-9 found negative result, no follow-up needed SDOH Questions SDOH Questions In the past year have you been worried about losing housing?: No In the past year have you or any family members you live with been unable to get any of the following when it was really needed? Check all that apply:: None Fall Risk History Have you had any falls with injury i n the past year?: No Have you had two or more falls in the year?: No Communication Needs Communication Needs Does the patient have a hearing impairment: No Does the patient have a vision impairmen t?: Yes If yes, what is the vision impairment?: Glasses Does the patient have a cognition impair ment?: No Examination Category Sub-Category Detail Notes Category Not es General Examination GENERAL APPEARANCE: well dev eloped, well nourished, in no acute distress HEAD: normocephalic, atrau matic EYES: pupils equal, round, reactive to light and accommodation, sclera non-icteric EARS: normal THROAT: clear NECK/THYROID: neck supple, full ra nge of motion, no cervical lymphadenopathy, no bruits HEART: regular rate and rhy thm, S1, S2 normal, no murmurs LUNGS: clear to auscultatio n bilaterally ABDOMEN: soft, nontender, non distended, bowel sounds present, normal, no organomegaly , no masses palpable NEUROLOGIC: nonfocal, motor stre ngth normal upper and lower extremities, sensory exam intact SKIN: warm and dry, no brent picious lesions EXTREMITIES: no clubbing, cyanosi s, or edema, abnormal rt anterior tibial area has lesion consistant with dermatofibroma. evaluated by derm MALE GENITOURINARY: not examined RECTAL EXAM: normal tone, no exte rnal hemorrhoids, no masses palpable, prostate normal, stool guaiac negative ORAL CAVITY: mucosa moist
--- OUTSIDE RECORDS SUMMARY | 2024-12-26 10:15 | XMS_ITS ---
Author Organization Parviz Hair MD Address [address] [place], [place] [id number] Care Team Providers Care Tank Tester Name Role Phone JimMaria Luisa rousen Primary [...] Location Date Provider Diagnosis Parviz Hair MD [address] [place] [phone] 12/26/2024 Parviz Hair Tenderness of chest wall [...] observe Next Appt Details Provider Name:Parviz curtis, 11/13/2025 07:00:00 AM, [address] [place] [address], [address], [phone], Provider Name:Parviz curtis, 11/17/2025 02:00:00 PM, [address] [place] [address], [address], [phone], Provider Name:Parviz curtis, 05/14/2026 07:30:00 AM, [address] [place] [address], [address], [phone], Provider Name:Parviz curtis, 05/21/2026 01:00:00 PM, [address] [place] [address], [address], [phone], Progress Notes * Cullen CHAND JR, MDOB:[birth year] (60 yo M)Acc No.[id number]:12/26/2024 Progress Notes Patient: Cullen RUIZ JR Provider: Gaston Hair MD :1965 A ge:59 Y S ex:Male Date:12/26/2024 Address:[address], [place], [place] Subjective: * Chief Complaints: * 1 . RIB PAIN MIDDLE OF CHEST OFF AND ON ? GERD. * HPI: S ymptom(s): patient is a [...] ed and blue toes. * Medical History: c olonoscopy and endos 2010 colon neg reflux on; Colonoscopy 06/10/[address] Fowler - repeat 3-5 yrs depending on biopsy, Refuses flu shot02-05-13, Ent eval with endo showed normal vocal cords, Lung nodule evaluated with cat and rep[eat ct in [address] lesion gone no need for further evalua, Colonoscopy path from 2019 was negative but her colonoscopy said polyps removed. * Medications: T aking Ibuprofen 200 MG Tablet 3 tablet with food or milk as needed Orally Three times a day , Taking Valsartan-hydroCHLOROthiazide 160-12.5 MG Tablet TAKE 1 TABLET BY MOUTH EVERY DAY , Not-Taking/PRN traMADol HCl 50 MG Tablet 1 tablet as needed Orally 2 times a day , Not-Taking/PRN Omeprazole 20 MG Capsule Delayed Release 1 capsule Orally Once a day , Not-Taking/PRN Ventolin HFA * 108 (90 Base) MCG/ACT Aerosol Solution 2 puffs as needed Inhalation every 4 hrs , Medication List reviewed and reconciled with the patient * Allergies: C odeine: Vomiting. Objective: * Vitals: H t: 66, Wt: [...] - R07.89 (Primary) Plan: * Treatment: * * The named appointment provid er may or may not be the originator of this progress note, and it is not deemed complete until electronically signed by the appointment provider. Sign off status: Pending * Provider: Gaston Hair MD Date: 0 12/26/2024 Generated for Mary Jane ott/Spike/Kortneyitting on: 0 08/21/2025 07:23 AM EDT History and Physical Notes * [...]
--- OUTSIDE RECORDS SUMMARY | 2025-05-06 03:45 | XMS_ITS ---
Author Organization Parviz Hair MD Address [address] [place], [place] [phone] Care Team Providers Care Oem Sales Manager Name Role Phone Reginaldo Parviz Primary Care Provider [phone] REASON FOR VISIT FASTING LABS Encounters Encounter Location Date Provider Diagnosis Parviz Hair MD [address] [place], [place] [phone] 05/06/2025 Parviz Hair Blood tests for rout [...] Order Date Complete Blood Count Auto Diff 5 Comprehensive [place]. Panel Fast Lipid Panel 05/06/2025 PSA,Total (Free>4and<10) 05/06/2025 Microalbumin, Random 05/06/2025 Hemoglobin A1c 05/06/2025 UA ClnCatch+Micro w/rflx Cult 05/06/2025 Next Appt Details Provider Name:Parviz Contreraschika ier, 11/13/2025 07:00:00 AM, [address] [place] [address], [address] [place] [address], [phone], Provider Name:Parviz Contreraschika ier, 11/17/2025 02:00:00 PM, [address] [place] [address], [address] [place] [address], [phone], Provider Name:Parviz Deutsch ier, 05/14/2026 07:30:00 AM, [address] [place] [address], [address], [phone], Provider Name:Parviz Deutsch ier, 05/21/2026 01:00:00 PM, [address] [place] [address], [address] [place] [address], [phone], Progress Notes * Cullen CHAND JR, MDOB:[birth year] (60 yo M)Acc No.[id number]:05/06/2025 Progress Note Patient: Barbara Cullen LUNDBERG JR Provider: Gaston Hair MD :1965 A ge:59 Y S ex:Male Date:05/06/2025 Address:[address] [place] [address], [facility] [id number] Subjective: * Chief Complaints: * 1 . [...] Blood Count Auto Diff L AB: Comprehensive [place]. Panel Fast L AB: Lipid Panel L AB: PSA,Total (Free>4and<10) L AB: Microalbumin, Random L AB: Hemoglobin A1c L AB: UA ClnCatch+Micro w/rflx Cult 3. P ure hypercholesterolemia L AB: Complete Blood Count Auto Diff L AB: Comprehensive [place]. Panel Fast L AB: Lipid Panel L AB: PSA,Total (Free>4and<10) L AB: Microalbumin, Random L AB: Hemoglobin A1c L AB: UA ClnCatch+Micro w/rflx Cult 4. P rediabetes L AB: Complete Blood Count Auto Diff L AB: Comprehensive [place]. Panel Fast L AB: Lipid Panel L [...] Date: 0 05/06/2025 Generated for Mary Jane ott/Spike/Kortneyitting on: 0 08/21/2025 07:24 AM EDT
--- OUTSIDE RECORDS SUMMARY | 2025-05-13 09:00 | XMS_ITS ---
Author Organization Parviz Hair MD Address [address] [place], [place] [phone] Care Team Providers Care Wool And Pelt Grader Name Role Phone JimMaria Luisa rousen Primary [...] Risk Notes Problem Diffuse spasm of esophagus (19891597) Esophageal dysfunction (K22.4) Active confirmed Vital Signs Blood pressure systolic 150 mm Hg 05/13/20 25 Blood pressure diastolic 100 mm Hg 025 Height 66 in 05/13/2025 Weight 170 lbs 05/13/2025 BMI 27.44 kg/m2 05/13/2025 weight is up 4 pounds since 12-26-24 Encounters Encounter Location Date Provider Diagnosis Parviz Hair MD [address] [place] [address] [place] [phone] 05/13/2025 Parviz Hair Annual physical exam Z00.00 [...] no need for medication at this time Future Test Test Name Order Date Lipid Panel 11/12/2025 Next Appt Details Follow Up: 6 Months, Reason: Provider Name:Parviz curtis, 11/13/2025 07:00:00 AM, [address] [place] [address], [phone], Provider Name:Parviz curtis, 11/17/2025 02:00:00 PM, [address] [place] [address], [phone], Provider Name:Parviz curtis, 05/14/2026 07:30:00 AM, [address] [place] [address], [phone], Provider Name:Parviz curtis, 05/21/2026 01:00:00 PM, [address] [place] [address], [phone], Progress Notes * Cullen CHAND JR, MDOB:[birth year] (59 yo M)Acc No.[id number]:05/13/2025 Progress Notes Patient: S Cullen LUNDBERG JR Provider: Gaston Hair MD :1965 A ge:59 Y S ex:Male Date:05/13/2025 Address:[address] [place] [address], [id number] Subjective: * Chief Complaints: * A NNUAL [...] cat dog chickens. Travel outside of the [place]: no. * Medications: T akingIbuprofen 200 [...] mg/dL Urine Blood Negative Negative - Specific [place] - Urine 1.025 1.005-1.025 - Urine Protein [...] Urine 0-2 0-2 - /LPF L ab:Comprehensive [place]. Panel Fast (Order Date - 05/06/2025) (Collection [...] Hair MD Date: 0 05/13/2025 Generated for Mary Jane ott/Spike/eTransmitting on: 0 08/21/2025 07:23 AM EDT History [...]
[2025-08-21 07:07] VITALS: BP 189/88; PULSE 73; RESP 18; TEMP 36.3; O2SAT 97; BMI 26.1
--- OUTSIDE RECORDS SUMMARY | 2025-08-21 07:24 | XMS_ITS | Patient Health Record ---
Author Organization Parviz Hair MD Address [address] [place], [place] [phone] Care Team Providers Care Basket Assembler Name Role Phone Parviz Hair Primary Care Provider [phone] Allergies Allergen (clinical drug ingredient) Drug/Non Drug Allergy documented on EMR Reaction Allergy Type Onset Date Status codeine codeine (uncoded) vomiting Allergy Ac tive Results Component Value Reference Range Notes Complete Blood Count Auto Di ff Reviewed date:05/11/2025 07:43:11 PM Interpretation: Performing Lab:[facility], [address] [place] [phone] Notes/Report: White Blood Count 4.4 4.8-10.8 X10*3/uL Red Blood Count 4.92 4.60-5.80 X10*6/uL Hemoglobin 14.8 14.0-18.0 g/dl Hematocrit 43.3 42.0-52.0 % Mean Corpuscular Volume 88.0 80.0-98.0 fL Mean Corpuscular Hemoglobin 30.1 27.0-33.0 pg Mean Corpuscular HGB Conc 34.2 31.0-36.0 g/dl Red Cell Distribution Width 12.2 11.0-16.0 % Platelet Count 278 160-400 X10*3/uL Mean Platelet Volume 9.6 9.4-12.4 fL Neutrophils Percent Auto 61.2 45-73 % Imm Gran Pct Auto 0.2 0.0-0.4 % Lymphocytes Percent Auto 26.2 20-40 % Monocytes Percent Auto 7.6 2-11 % Eosinophils Percent Auto 3.7 0-4 % Basophils Percent Auto 1.1 0-2 % NRBC Pct Auto 0.0 0.0-0.2 /100WBC Neutrophils Absolute Auto 2.7 2.0-8.3 x10*3/u L Imm Gran Abs Auto 0.01 0.00-0.03 X10*3/uL Lymphocytes Absolute Auto 1.1 1.2-4.9 X10*3/u L Monocytes Absolute Auto 0.3 0.1-1.2 X10*3/uL Eosinophils Absolute Auto 0.2 0.0-0.4 X10*3/u L Basophils Absolute Auto 0.1 0.0-0.2 X10*3/uL NRBC Abs Auto 0.000 0.0-0.012 X10*3/uL Comprehensive [place]. Panel Fa st Reviewed date:05/11/2025 07:44:42 PM Interpretation: Performing Lab:[facility], [address] [place] [phone] Notes/Report: Sodium 140 135-145 mmol/L Potassium 4.4 3.3-5.1 mmol/L Chloride 106 96-108 mmol/L Carbon Dioxide 30 22-29 mmol/L Anion Gap 8 12-20 Blood Urea Nitrogen 14 9-16 mg/dL Creatinine 1.12 0.5-1.4 mg/dL Estimated Glomerular Filt Rate > 60 Chronic Kidney Disease: Estimated GFR < 60 mL/min/1.73m2 Severe Kidney Disease: Estimated GFR < 15 mL/min/1.73m2 Glucose Fasting 119 60-99 mg/dL A fasting glucose from 100-125 mg/dl is considered impaired (pre-diabetes). Calcium 9.0 8.4-10.2 mg/dL Bilirubin Total 0.7 0.0-1.0 mg/dL Aspartate Amino Transferase 21 5-37 U/L Alanine Aminotransferase 18 0-40 U/L Total Protein 6.7 6.5-8.0 g/dL Albumin Level 4.2 3.5-5.0 g/dL Alkaline Phosphatase 66 39-117 U/L Lipid Panel Reviewed date:05/08/2025 12:40:34 PM Interpretation: Performing Lab:[address] [phone] Notes/Report: Triglycerides 135 <150 mg/dL Desirable Triglyceride: less than 150 mg/dL Borderline High Triglyceride 150-199 mg/dL High Triglyceride: 200-499 mg/dL Very High Triglyceride: greater than or equal to 5OO mg/dL Cholesterol 254 <200 mg/dL Desirable Cholesterol: less than 200 mg/dL Borderline High Cholesterol: 200-239 mg/dL High Cholesterol: greater than 239 mg/dL LDL Cholesterol Calculated 162 <100 mg/dL Desirable LDL: less than 100 mg/dL Near Optimal/Above Optimal LDL: 110-129 mg/dL Borderline High LDL: 130-159 mg/dL High LDL: 160-189 mg/dL Very High LDL: greater than or equal to 190 mg/dL HDL Cholesterol 65 >40 mg/dL Desirable HDL: greater than 40 mg/dL Note: This HDL assay may give artificially low results in patients with liver disease. PSA,Total (Free>4and<10) Reviewed date:05/08/2025 12:40:21 PM Interpretation: Performing Lab:[facility], [address] [place] [phone] Notes/Report: PSA,Total (Free>4and<10) 0.58 0.00-4.00 ng/mL A Free PSA was not performed: The percentage of Free PSA can be used to enhance the differentiation of prostate cancer from benign prostatic disease in subjects whose PSA levels are between 4.0 and 10.0 ng/mL. For subjects whose PSA levels are below 4.0 or above 10.0 ng/mL, the risk of prostate cancer is determined on the basis of the PSA alone. Therefore the % Free PSA is recommended only for those subjects whose PSA levels are between 4.0 and 10.0 ng/mL. PSA methodology: Pineda Alinity i Chemiluminescent Microparticle Immunoassay (CMIA) Microalbumin, Random Reviewed date:05/08/2025 12:40:14 PM Interpretation: Performing Lab:[facility], [address] [place] [phone] Notes/Report: Creatinine Urine 180.97 Microalbumin Urine 6.0 Microalbum/Creatinine Ratio Ur 3.3 <30 ug/mg cr Albumin/Creatinine Ratio Reference Ranges: Normal: < 30 ug/mg creatinine Microalbuminuria: 30 - 300 ug/mg creatinine Clinical Albuminuria: > 300 ug/mg creatinine Hemoglobin A1c Reviewed date:05/08/2025 12:40:54 PM Interpretation: Performing Lab:[facility], [address] [place] [phone] Notes/Report: Hemoglobin A1c % 5.3 <6.0 % Hemoglobin A1C Reference Range Adults: 4.8 - 6.0 % Non diabetic: < 6.0 % Goal: < 7.0 % Additional Action Suggested: > 8.0 % Note: Hemoglobin A1c results are invalid for patients with abnormal amounts of HbF. Blood transfusions may impact the HbA1c concentration in the patient sample. Estimated Average Glucose 105 eAG = Estimated average glucose which is %A1C expressed as average glucose, using the formula of the [id number]-[id number] Average Glucose study (ADAG), Diabetes Care, Vol.31,#8, Jun. 2007 UA ClnCatch+Micro w/rflx Cul t Reviewed date:05/11/2025 07:42:41 PM Interpretation: Performing Lab:[facility], [address] [place] [phone] Notes/Report: Urine, Clean Catch Color Urine Yellow Appearance Urine Clear PH 7.0 5.0-9.0 Glucose Urine UA Negative Negative mg/dL Urine Blood Negative Negative Specific [place] - Urine 1.025 1.005-1.025 Urine Protein Negative Neg-Trace mg/dL Urine Ketones Negative Negative mg/dL Nitrite Urine Negative Negative Leukocyte Esterase Urine Negative Negative RBC Urine 0-2 0-2 /HPF WBC Urine 0-5 0-5 /HPF Squamous Epithelial Cell Urine 0-2 0-2 /HPF Bacteria Urine None Seen None Seen Hyaline Casts Urine 0-2 0-2 /LPF Reason For Referral No Information Medications Medication SIG (Take, Route, Frequency, Duration) [...] 1 TABLET BY MOUTH EVERY DAY Active Immunizations Vaccine Route Administration Date Status Comme nts SARS-COV-2 Moderna Unknown 02/08/2021 Administered SARS-COV-2 Moderna Unknown 03/08/2021 Administered Fluarix Quadrivalent Unknown 10/11/2021 Administered SARS-COV-2 Moderna Unknown 10/11/2021 Administered [facility] DECLINED, FLU Unknown 09/02/2014 Refused Shingrix Unknown 05/08/2018 Refused Social History Tobacco Use: Social History Observation [...] Problem Status W/U Status Risk Notes Problem 356953544 Lung nodule seen on imaging study (R91.1) Active confirmed Problem 507420619 Reflux esophagit is (K21.00) Active confirmed Problem 67931368 Essential hypert ension (I10) Active confirmed Problem 644942290 Mild intermitten t asthma without complication (J45.20) Active confirmed Problem 2712667 Prediabetes (R73.09) Active confirmed Problem Solitary nodule of lung (963935775) Lung nodule (R91.1) Active confirmed Problem 47118254 Hay fever (J30.1) Active confirmed Problem 101675620 Pure hypercholesterolemia (E78.00) Active confirmed Problem 368216493 Skin cancer, bas al cell (C44.91) Active confirmed Problem Diffuse spasm of esophagus (15385389) Esophageal dysfunction (K22.4) Active confirmed Problem 457576566 Seasonal allergi c rhinitis, unspecified trigger (J30.2) Active confirmed Problem 760974244 Abnormality 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) Active confirmed Vital Signs Blood pressure diastolic 100 mm Hg 05/13/2025 ehsan ght is up 4 pounds since 12-26-24 Height 66 in 05/13/2025 weight is up 4 pounds since 12-26-24 Blood pressure systolic 150 mm Hg 05/13/2025 weig ht is up 4 pounds since 12-26-24 Weight 170 lbs 05/13/2025 weight is up 4 pounds since 12-26-24 BMI 27.44 kg/m2 05/13/2025 weight is up 4 pounds since 12-26-24 Encounters Encounter Location Date Provider Diagnosis Parviz Hair MD [address] [place] [phone] 12/26/2024 Parviz Hair Tenderness of chest wall R07.89 Parviz Hair MD [address] [place] [address] Drive [address] [place] [phone] 05/06/2025 Parviz Hair Blood tests for rout ine general physical examination Z00.00 ; Essential hypertension I10 ; Pure hypercholesterolemia E78.00 and Prediabetes R73.09 Parviz Hair MD [address] [place] [address] Drive [address] [place] [phone] 05/13/2025 Parviz Hair Annual physical exam Z00.00 [...] any symptosn that sound cardiac. will observe 05/06/[address] ine general physical examination (ICD-10 - Z00.00) 05/13/2025 Annual physical exam (ICD-10 - Z00.00) labs reviewed and discussed with patient 05/13/2025 Esophageal dysfuncti on (ICD-10 - K22.4) is getting better so will observe for now 05/06/2025 Essential hypertensi on (ICD-10 - I10) 05/13/2025 Reflux esophagitis (ICD-10 - K21.00) is getting a little better 05/06/2025 Pure hypercholesterolemia (ICD-10 - E78.00) 05/13/2025 Hay fever (ICD-10 - J30.1) doing well in spite of the difficult season 05/06/2025 Prediabetes (ICD-10 - R73.09) 05/13/2025 Pure hypercholesterolemia (ICD-10 - E78.00) stable, 05/13/2025 Essential hypertensi on (ICD-10 - I10) stable, will continue current regiment 05/13/2025 Prediabetes (ICD-10 - R73.09) stable, no need for medication at this time Plan Of Treatment Pending Test Test Name Order Date Electrocardiogram (EKG) 04/26/2016 Complete Blood Count Auto Diff 5 Comprehensive [place]. Panel Fast 5 Lipid Panel 05/06/2025 PSA,Total (Free>4and<10) 05/06/2025 Microalbumin, Random 05/06/2025 CT chest wo con 02/24/2023 Hemoglobin A1c 05/06/2025 UA ClnCatch+Micro w/rflx Cult 05/06/2025 Future Test Test Name Order Date CT chest w con 08/29/2023 Next Appt Details Provider Name:Parviz munguiar, 11/13/2025 07:00:00 AM, [address] [place] [address], [address], [place], [place], [phone], Provider Name:Parviz curtis, 11/17/2025 02:00:00 PM, [address] [place] [address], Suite [facility], [place], [place], [phone], Provider Name:Parviz curtis, 05/14/2026 07:30:00 AM, [address] [place] [address], Suite [facility], [place], [place], [phone], Provider Name:Parviz Deutsch ier, 05/21/2026 01:00:00 PM, [address], [address], [place], [phone], Insurance Providers Payer Name Payer Address Payer Phone Subscriber Number Group Number Insured Name Patient Relationship to Insured Coverage Start Date Coverage End Date [employer] [address] [place], [place] [id number] Cullen Ryan Jr Self - patient is the insured Medical (General) History Medical History History ICD Code colonoscopy and endos 2010 c olon neg reflux on; Colonoscopy 06/10/[address] Fowler - repeat 3-5 yrs depending on biopsy Refuses flu shot02-05-13 ent eval with endo showed normal vocal c ords lung nodule evaluated with c at and rep[eat ct in [address] lesion gone no need for further evalua colonoscopy path from 2019 w as negative but her colonoscopy said polyps removed
[2025-08-21] MEDS: Tetracaine HCl/PF 0.5% Oph Sol 4 ML DROPS 3 DROP EYE-BOTH (07:39)
[2025-08-21] MEDS: Fluorescein Sodium STRIP 1 STRIP EYE-BOTH (07:39)
--- NOTE | 2025-08-21 07:43 | ED.EYEPROB ---
HPI - Eye Problem General Chief complaint: Eye Problems Stated complaint: pocked in left eye Time Seen by Provider: 08/21/25 07:26 Source: patient Mode of arrival: ambulatory Limitations: no limitations History of Present Illness ED Provider: DR. Estrada HPI Narrative: 60-year-old male came in for evaluation of left eye after was poked by his dog in the left eye last night, patient dog is mostly indoor, up-to-date on his immunization, patient has been complaining of left eye burning, no drainage. Related Data Previous Rx's ?Medication ?Instructions ?Recorded naproxen 500 mg tablet 500 mg PO BID PRN pain #20 tabs 07/02/21 tramadol 50 mg tablet 50 mg PO Q6H PRN pain #12 tabs 07/02/21 oxycodone 5 mg tablet 5 mg PO Q8H PRN pain #10 tabs 02/23/23 erythromycin 5 mg/gram (0.5 %) eye 0.5 inch ophthalmic (eye) QID #3.5 08/21/25 ointment grams Allergies Allergy/AdvReac Type Severity Reaction Status Date / Time codeine (CODEINE) Allergy Intermediate VOMITING Verified 08/21/25 07:09 Review of Systems Review of Systems: All other systems are reviewed and are negative Constitutional: Reports as per HPI and Reports no additional constitutional complaints Eyes: Reports as per HPI and Reports no additional eye complaints Reports system reviewed and no additional complaints, except as documented Cardiovascular: Reports as per HPI and Reports no additional cardiovascular complaints Respiratory: Reports as per HPI and Reports no additional respiratory complaints Gastrointestinal: Reports as per HPI and Reports no additional gastrointestinal complaints Genitourinary: Reports no additional female genitourinary complaints Musculoskeletal: Reports no additional musculoskeletal complaints Skin/Breast: Reports system reviewed and no additional complaints, except as docu Psychiatric: Reports no additional psychiatric complaints Endocrine: Reports no additional endocrine complaints Hematologic/Lymphatic: Reports no additional hematologic/lymphatic complaints Allergic/Immunologic: Reports no additional allergic/immunologic complaints Reports system reviewed and no additional complaints, except as documented and Reports Abnormal speech present [facility] Past Medical History Medical History Hypertension No known health problems Social History Social History Alcohol intake: current Substance Use Type: Marijuana Advance Directives: No Advance Directives Information Provided: No Do you have a plan to hurt others: No Plan Physical Exam Vital Signs: Vital Signs: Last Vital Signs Temp 97.3 F 08/21/25 07:07 Pulse 73 08/21/25 07:07 Resp 18 08/21/25 07:07 BP 189/88 H 08/21/25 07:07 Pulse Ox 97 08/21/25 07:07 O2 Del Method Room Air 08/21/25 07:07 BMI result Body Mass Index 26.1 Vital signs have been reviewed and appear to be correct. Blood pressure elevated. Heart rate normal. Respiratory rate normal. Temperature normal. Oxygen saturation normal. Appearance: Alert. Oriented X3. No acute distress. Head: Normal external exam. Normocephalic. Atraumatic. No Voss signs noted. No raccoon eyes noted Eyes: VA 20/25 left, 20/20 on right, 20/20 both. General: appearance normal, both eyes and all related structures Visual Lyn: normal visual lyn by confrontation Alignment and Position: alignment normal and position normal Periorbital: periorbital findings normal Eyelids: Yes eyelids normal Conjunctivae: Mild conjunctival injection Sclerae: sclerae normal Corneas: Fluorescein uptake on 02:00 area small, not affecting center of the cornea. Pupils: Equal, round and reactive pupils present and Pupil accommodation reflex normal EOM: EOM abnormal (Limited abduction of right eye) and No Nystagmus present Direct Ophthalmoscopy: normal light reflex, no photophobia, no papilledema and fundi normal bilaterally. IOP 14 on the left, 12 on right. I ultrasound shows no acute pathology. ENT: TM's Normal. Pharynx normal. Uvula midline. Moist mucous membranes. No trismus noted. No drooling noted. No muffled voice noted. Neck: Normal inspection. Neck supple. FROM. No adenopathy. Thyroid Normal. No meningeal signs. No neck mass noted. CVS: Normal heart rate and rhythm. Heart sound normal. No murmurs noted. Pulses normal throughout. Respiratory: No respiratory distress. Painless inspiration. Breath sounds normal. No wheezes/rales/rhonchi noted. Chest nontender. No accessory muscle usage noted or decreased air movement noted. Abdomen: Soft and nontender. Bowel sounds normal in all 4 quadrants. No distention noted. No organomegaly noted. No visible injury noted. Back: No CVA tenderness. Full range of motion noted. Skin: Skin warm and dry. Normal skin color. Normal skin turgor. No rashes/lesions/lacerations noted. Extremities: No lower extremity edema. Extremities exhibit normal range of motion. Extremities nontender. Neuro: Oriented X 3. Cranial nerve exam: II-XII are grossly intact No motor deficit. No sensory deficit. Reflexes normal. Course Reevaluation(s) Reevaluation #1: Left small corneal abrasion, the dog is up to date on his immunization, will start the patient on erythromycin ointment and follow-up with PCP. Time: 07:49 Medications Administered Discontinued Medications Generic Name Dose Route Start Last Admin Trade Name Freq PRN Reason Stop Dose Admin Fluorescein Sodium 1 strip 08/21/25 07:28 08/21/25 07:39 Fluorescein Sodium Strip EYE-BOTH 08/21/25 07:29 1 strip ONCE ONE Administration Tetracaine HCl 3 drop 08/21/25 07:26 08/21/25 07:39 Tetracaine Hcl/Pf 0.5% Oph Raquel 4 Ml Drops EYE-BOTH 08/21/25 07:27 3 drop ONCE ONE Administration Medical Decision Making Differential Diagnosis Differential Diagnoses: The differential diagnosis associated with the presentation includes (Foreign body retained in the left eye, corneal abrasion, increase IOP, hyphema.) Admission/Observation Consideration of admission/observation: Escalation of care including admission/observation considered Discharge Plan Discharge Clinical Impression: Corneal abrasion Patient Disposition: Home, Self-Care Instructions: Corneal Abrasion (ED) Prescriptions: New erythromycin 5 mg/gram (0.5 %) ointment 0.5 inch ophthalmic (eye) QID Qty: 3.5 0RF Rx Instructions: Applied to the left eye 4 times a day. No Action tramadol 50 mg tablet 50 mg PO Q6H PRN (Reason: pain) Qty: 12 0RF naproxen 500 mg tablet 500 mg PO BID PRN (Reason: pain) Qty: 20 0RF oxycodone 5 mg tablet 5 mg PO Q8H PRN (Reason: pain) Qty: 10 0RF Rx Instructions: Partial Fill upon patient request. Referrals: Parviz Hair MD [Primary Care Provider, Medical] Germain Flores [Physician, Ophthalmology] Print Language: Paraguayan
[2025-08-21] MEDS: Erythromycin Base 0.5% Oph Oin 1 GM TUBE 1 CM EYE-LEFT (08:04)
[2025-08-21 08:25] VITALS: BP 160/94; PULSE 67; RESP 18; TEMP 36.5; O2SAT 98
== END 2025-08-21 08:27 | disposition home or self-care (01) ==
PROVIDERS: Emergency Provider Emergency Medicine; PCP Internal Medicine
DX: S05.02XA Injury of conjunctiva and corneal abrasion without foreign body, left eye, initial encounter (principal); H57.12 Ocular pain, left eye; X58.XXXA Exposure to other specified factors, initial encounter; Y93.9 Activity, unspecified; Y92.9 Unspecified place or not applicable; Y99.8 Other external cause status
CPT/HCPCS: 99283

== ENCOUNTER 2025-11-13 11:00 | Outpatient (REF) | payer BC, SELFPAY ==
--- OUTSIDE RECORDS SUMMARY | 2024-12-26 09:15 | XMS_ITS ---
Author Organization Parviz Hair MD Address [address] [place], [place] [id number] Care Team Providers Care Alumni Secretary Name Role Phone JimMaria Luisa rousen Primary Care Provider Allergies Allergen (clinical drug ingredient) Drug/Non Drug Allergy documented on EMR Reaction Allergy Type Onset Date Status codeine codeine (uncoded) vomiting Allergy Ac tive REASON FOR VISIT RIB PAIN MIDDLE OF CHEST OFF AND ON ? GERD Medications Medication SIG (Take, Route, Frequency, Duration) Notes Start Date End Date Status Omeprazole 20 MG 1 capsule Orally Onc e a day Not-Taking Ventolin HFA * 108 (90 Base) MCG/ACT 2 puffs as needed Inhalation every 4 hrs for 30 day(s) 04/26/2016 Not-Taking Valsartan-hydroCHLOROthi azide 160-12.5 MG TAKE 1 TABLET BY MOUTH EVERY DAY Active traMADol HCl 50 MG 1 tablet as needed Orally 2 times a day for 14 days 07/08/2021 Not-Taking Ibuprofen 200 MG 3 tablet with food o r milk as needed Orally Three times a day Active Vital Signs Blood pressure systolic 132 mm Hg 12/26/19 25 Blood pressure diastolic 80 mm Hg 025 Height 66 in 12/26/2024 Weight 166 lbs 12/26/2024 BMI 26.79 kg/m2 12/26/2024 weight is down 4 pounds sin e 6-14-24 Encounters Encounter Location Date Provider Diagnosis Parviz Hair MD [address] [place] [id number] 12/26/2024 Parviz Hair Tenderness of chest wall R07.89 Assessments Encounter Date Diagnosis (ICD Code) Assessment Notes Treatment Notes Treatment Clinical Notes Section Notes 12/26/2024 Tenderness of chest wall (ICD-10 - R07.89) will just observe/ not having any exertional pain and is there subtly at all times. came on after turing over in bed and seems that is worse on palpation.not with any symptosn that sound cardiac. will observe Plan Of Treatment Treatment Notes Assessment Notes Tenderness of chest wall will just obser ve/ not having any exertional pain and is there subtly at all times. came on after turing over in bed and seems that is worse on palpation.not with any symptosn that sound cardiac. will observe Next Appt Details Provider Name:Parviz curtis, 11/14/2025 09:00:00 AM, [address] [place] [address], [address], [phone], Provider Name:Parviz curtis, 05/14/2026 07:30:00 AM, [address] [place] [address], [address], [phone], Provider Name:Parviz curtis, 05/21/2026 01:00:00 PM, [address] [place] [address], [address], [phone], Progress Notes * Cullen CHAND JR, MDOB:[birth year] (60 yo M)Acc No.[id number]:12/26/2024 Progress Notes Patient: Barbara Cullen LUNDBERG JR Provider: Gaston Hair MD :1965 A ge:59 Y S ex:Male Date:12/26/2024 Address:[address], [place], [place] Subjective: * Chief Complaints: * R IB PAIN MIDDLE OF CHEST OFF AND ON ? GERD * HPI: S ymptom(s): patient is a 59 yo male with pressure with deep inspiration. worse when getting up in the morning. feels like heartburn. started on omeprazole and is helping.floppwed over in ed and got sharp pin in sternum and since then achy feeling there most of the time. breathing is okay. * ROS: G eneral/Constitutional: Denies C hills. D enies F atigue. D enies F ever. D enies H eadache. E NT: Patient denies d ecreased sense of smell, any loss of taste, sore throat. D enies S ore throat. R espiratory: Denies C ough. D enies S hortness of breath at rest. D enies S hortness of breath with exertion. G astrointestinal: Denies A bdominal pain. D enies D ecreased appetite. D enies D iarrhea. A dmits H eartburn. D enies N ausea. D enies V omiting. M usculoskeletal: Patient denies m uscle aches. P eripheral Vascular: Patient denies r ed and blue toes. * Medical History: * Surgical History: * Hospitalization/Major Diagno stic Procedure: * Medications: T akingIbuprofen 200 MG Tablet 3 tablet with food or milk as needed Orally Three times a day Valsartan-hydroCHLOROthiazide 160-12.5 MG Tablet TAKE 1 TABLET BY MOUTH EVERY DAY Taking Ibuprofen 200 MG Tablet 3 tablet with food or milk as needed Orally Three times a day Taking Valsartan-hydroCHLOROthiazide 160-12.5 MG Tablet TAKE 1 TABLET BY MOUTH EVERY DAY Not-Taking/PRNtraMADol HCl 50 MG Tablet 1 tablet as needed Orally 2 times a day Omeprazole 20 MG Capsule Delayed Release 1 capsule Orally Once a day Ventolin HFA * 108 (90 Base) MCG/ACT Aerosol Solution 2 puffs as needed Inhalation every 4 hrs Medication List reviewed and reconciled with the patientNot- Taking/PRN traMADol HCl 50 MG Tablet 1 tablet as needed Orally 2 times a day Not-Taking/PRN Omeprazole 20 MG Capsule Delayed Release 1 capsule Orally Once a day Not- Taking/PRN Ventolin HFA * 108 (90 Base) MCG/ACT Aerosol Solution 2 puffs as needed Inhalation every 4 hrs Medication List reviewed and reconciled with the patient * Allergies: c odeine: vomitingyes[Allergies Verified] Objective: * Vitals: H t: 66, Wt: 166, BMI:26.79, BP:132/80, Wt-k.3. weight is down 4 pounds since 05-10-24. * Examination: G eneral Examination: GENERAL APPEARANCE: a lert, well hydrated, in no distress.? HEAD: n ormocephalic. SKIN: g ood turgor. HEART: n o murmurs, rubs, gallops, regular rate and rhythm.? LUNGS: n o wheezes, rales, rhonchi, good air movement, clear to auscultation bilaterally. CHEST: a bnormal with tenderness over the xiphoid process and lateral sternum. Assessment: * Assessment: 1. T enderness of chest wall - R07.89 (Primary) Plan: * Treatment: * Procedure Codes: * * Sign off status: Completed true * Provider: Gaston Hair MD Date: 0 12/26/2024 Generated for Mary Jane ott/Spike/Kortneyitting on: 01/14/2025 02:21 PM EST History and Physical Notes * HPI (History of Present Illness) Category Sub-Category Detail Notes Category Not es Symptom(s) patient is a 59 yo male with pressure with deep inspiration. worse when getting up in the morning. feels like heartburn. started on omeprazole and is helping.floppwed over in ed and got sharp pin in sternum and since then achy feeling there most of the time. breathing is okay. Examination Category Sub-Category Detail Notes Category Not es General Examination GENERAL APPEARANCE: alert, w ell hydrated, in no distress HEAD: normocephalic HEART: no murmurs, rubs, ga llops, regular rate and rhythm CHEST: abnormal with tender ness over the xiphoid process and lateral sternum LUNGS: no wheezes, rales, r honchi, good air movement, clear to auscultation bilaterally SKIN: good turgor
--- OUTSIDE RECORDS SUMMARY | 2025-05-06 02:45 | XMS_ITS ---
Author Organization Parviz Hair MD Address [address] [place], [place] [id number] Care Team Providers Care Pediatric Nephrologist Name Role Phone Reginaldo Parviz Primary Care Provider [phone] REASON FOR VISIT FASTING LABS Encounters Encounter Location Date Provider Diagnosis Parviz Hair MD [address] [place], [place] [id number] 05/06/2025 Parviz Hair Blood tests for rout ine general physical examination Z00.00 ; Essential hypertension I10 ; Pure hypercholesterolemia E78.00 and Prediabetes R73.09 Assessments Encounter Date Diagnosis (ICD Code) Assessment Notes Treatment Notes Treatment Clinical Notes Section Notes 05/06/2025 Blood tests for rout ine general physical examination (ICD-10 - Z00.00) 05/06/2025 Essential hypertensi on (ICD-10 - I10) 05/06/2025 Pure hypercholesterolemia (ICD-10 - E78.00) 05/06/2025 Prediabetes (ICD-10 - R73.09) Plan Of Treatment Pending Test Test Name Order Date Complete Blood Count Auto Diff Comprehensive [place]. Panel Fast Lipid Panel 05/06/2025 PSA,Total (Free>4and<10) 05/06/2025 Microalbumin, Random 05/06/2025 Hemoglobin A1c 05/06/2025 UA ClnCatch+Micro w/rflx Cult 05/06/2025 Next Appt Details Provider Name:Parviz Deutsch ier, 11/14/2025 09:00:00 AM, [address] [place] [address], [address] [facility], [place], [place], [phone], Provider Name:Parviz Deutsch ier, 05/14/2026 07:30:00 AM, [address] [place] [address], [place] [address], [place], [place], [phone], Provider Name:Parviz Deutsch ier, 05/21/2026 01:00:00 PM, [address] [place] [address], [address], [phone], Progress Notes * Cullen CHAND JR, MDOB:[birth year] (60 yo M)Acc No.[id number]:05/06/2025 Progress Note Patient: Barbara Cullen LUNDBERG JR Provider: Gaston Hair MD :1965 A ge:59 Y S ex:Male Date:05/06/2025 Address:[address] [place] [address], [place], [place] Subjective: * Chief Complaints: * 1 . FASTING LABS. * Medical History: Objective: * Vitals: Assessment: * Assessment: 1. B lood tests for routine general physical examination - Z00.00 (Primary) 2 .?Essential hypertension - I10 3 . P ure hypercholesterolemia - E78.00 ? 4 . P rediabetes - R73.09 Plan: * Treatment: 2. E ssential hypertension L AB: Complete Blood Count Auto Diff L AB: Comprehensive [place]. Panel Fast L AB: Lipid Panel L AB: PSA,Total (Free>4and<10) L AB: Microalbumin, Random L AB: Hemoglobin A1c L AB: UA ClnCatch+Micro w/rflx Cult 3. P ure hypercholesterolemia L AB: Complete Blood Count Auto Diff L AB: [facility] [place]. Panel Fast L AB: Lipid Panel L AB: PSA,Total (Free>4and<10) L AB: Microalbumin, Random L AB: Hemoglobin A1c L AB: UA ClnCatch+Micro w/rflx Cult 4. P rediabetes L AB: Complete Blood Count Auto Diff L AB: Comprehensive [place]. Panel Fast L AB: Lipid Panel L AB: PSA,Total (Free>4and<10) L AB: Microalbumin, Random L AB: Hemoglobin A1c L AB: UA ClnCatch+Micro w/rflx Cult * Procedure Codes: 3 6415 VENIPUNCT, ROUTINE* * * The named appointment provid er may or may not be the originator of this progress note, and it is not deemed complete until electronically signed by the appointment provider. Sign off status: Pending * Provider: Gaston Hair MD Date: 0 05/06/2025 Generated for Mary Jane ott/Spike/Nate on: 1 01/14/2025 02:21 PM EST
--- OUTSIDE RECORDS SUMMARY | 2025-05-13 08:00 | XMS_ITS ---
Author Organization Parviz Hair MD Address [address] [place], [place] [id number] Care Team Providers Care Cut Off Man Name Role Phone JimMaria Luisa rousen Primary Care Provider [phone] Allergies Allergen (clinical drug ingredient) Drug/Non Drug Allergy documented on EMR Reaction Allergy Type Onset Date Status codeine codeine (uncoded) vomiting Allergy Ac tive REASON FOR VISIT ANNUAL EXAM Medications Medication SIG (Take, Route, Frequency, Duration) Notes Start Date End Date Status Ibuprofen 200 MG 3 tablet with food o r milk as needed Orally Three times a day Active Ventolin HFA * 108 (90 Base) MCG/ACT 2 puffs as needed Inhalation every 4 hrs for 30 day(s) 04/26/2016 Not-Taking Omeprazole 20 MG 1 capsule Orally Onc e a day Not-Taking traMADol HCl 50 MG 1 tablet as needed Orally 2 times a day for 14 days 07/08/2021 Not-Taking Valsartan-hydroCHLOROthi azide 160-12.5 MG TAKE 1 TABLET BY MOUTH EVERY DAY Active Social History Tobacco Use: Social History Observation [...] Never (0 point) Points 1 Interpretation Negative Problems Problem Type SNOMED Code ICD Code Onset Dates Problem Status W/U Status Risk Notes Problem Diffuse spasm of esophagus (04699091) Esophageal dysfunction (K22.4) Active confirmed Vital Signs Blood pressure systolic 150 mm Hg 05/13/20 25 Blood pressure diastolic 100 mm Hg 025 Height 66 in 05/13/2025 Weight 170 lbs 05/13/2025 BMI 27.44 kg/m2 05/13/2025 weight is up 4 pounds since 12-26-24 Encounters Encounter Location Date Provider Diagnosis Parviz Hair MD [address] [place] [address] [place] [phone] 05/13/2025 Parviz Hair Annual physical exam Z00.00 ; Esophageal dysfunction K22.4 ; Reflux esophagitis K21.00 ; Hay fever J30.1 ; Pure hypercholesterolemia E78.00 ; Essential hypertension I10 and Prediabetes R73.09 Assessments Encounter Date Diagnosis (ICD Code) Assessment Notes Treatment Notes Treatment Clinical Notes Section Notes 05/13/2025 Annual physical exam (ICD-10 - Z00.00) labs reviewed and discussed with patient 05/13/2025 Esophageal dysfuncti on (ICD-10 - K22.4) is getting better so will observe for now 05/13/2025 Reflux esophagitis (ICD-10 - K21.00) is getting a little better 05/13/2025 Hay fever (ICD-10 - J30.1) doing well in spite of the difficult season 05/13/2025 Pure hypercholesterolemia (ICD-10 - E78.00) stable, 05/13/2025 Essential hypertensi on (ICD-10 - I10) stable, will continue current regiment 05/13/2025 Prediabetes (ICD-10 - R73.09) stable, no need for medication at this time Plan Of Treatment Medication Medication Name Sig Start Date Stop Date Notes Valsartan-hydroCHLOROthiazid e 160-12.5 MG TAKE 1 TABLET BY MOUTH EVERY DAY Treatment Notes Assessment Notes Annual physical exam labs reviewed and d iscussed with patient Esophageal dysfunction is getting better so will observe for now Reflux esophagitis is getting a little better Hay fever doing well in spite of the difficult season Pure hypercholesterolemia stable, Essential hypertension stable, will cont inue current regiment Prediabetes stable, no need for medication at this time Pending Test Test Name Order Date Lipid Panel 05/13/2025 Next Appt Details Follow Up: 6 Months, Reason: Provider Name:Parviz curtis, 11/14/2025 09:00:00 AM, [address] [place] [address], [address], [phone], Provider Name:Parviz curtis, 05/14/2026 07:30:00 AM, [address] [place] [address], [place] [address], [place], [place], [phone], Provider Name:Parviz curtis, 05/21/2026 01:00:00 PM, [address] [place] [address], [address], [phone], Progress Notes * Cullen CHAND JR, MDOB:[birth year] (59 yo M)Acc No.[id number]:05/13/2025 Progress Notes Patient: Barbara Cullen LUNDBERG JR Provider: Gaston Hair MD :1965 A ge:59 Y S ex:Male Date:05/13/2025 Address:[address], [id number] Subjective: * Chief Complaints: * A NNUAL EXAM * HPI: D epression Screening: PHQ-9 L [...] PHQ-9 found negative result, no follow-up needed. had some discomfort in chest and had gotten bad vomiting all day long. since then has some tenderness in substernal area. went back on omeprazole and is getting better. spicy food bother. C ommunication Needs: Communication Needs D oes the patient have a hearing impairment N o, D oes the patient have a vision impairment? Y es, I f yes, what is the vision impairment? G lasses, D oes the patient have a cognition impairment? N o. S LEONARDA Questions: SDOH Questions I n the past year have you been worried about losing housing? N o, I n the past year have you or any family members you live with been unable to get any of the following when it was really needed? Check all that apply: N one. S ymptom(s): patient is a 59 yo male here for annual visit with review of recent labs and follow upof chronic issues. * ROS: G eneral/Constitutional: Change in appetite [...] Procedure: * Family History: F ather: alive 80 yrs, diagnosed with Hypertension. M other: alive 78 yrs, diagnosed with Hypertension. 1 brother(s) , [...] affeine: yes, frequency:, 1-2 cups per day. Children: no. Community involvements: yes. Exercise: yes, 2-3 times per week swim snowboard baseball. Housing: owning. Living with: spouse. Marital status: . Occupation: works full-time. Pets: cat dog chickens. Travel outside of the [place]: no. * Medications: T akingIbuprofen 200 MG Tablet [...] Objective: * Vitals: H t: 66, Wt: 170, BMI:27.44, BP:150/100, Repeat BP:145/84, Wt-k.11. weight is up 4 pounds since 12-26-24. * P ast Orders: L ab:Lipid Panel (Order Date - 05/06/2025) (Collection Date & Time - 05/06/2025 07:45 AM) Value Reference Range Triglycerides 135 <150 - mg/dL Cholesterol 254 H <200 - mg/dL LDL Cholesterol Calculated 162 H <100 - mg/dL HDL Cholesterol 65 >40 - mg/dL L ab:PSA,Total (Free>4and<10) (Order Date - 05/06/2025) (Collection Date & Time - 05/06/2025 07:45 AM) Value Reference Range PSA,Total (Free>4and<10) 0.58 0.00-4.00 - ng/ mL L ab:Microalbumin, Random (Order Date - 05/06/2025) (Collection Date & Time - 05/06/2025 07:45 AM) Value Reference Range Creatinine Urine 180.97 - mg/dL Microalbumin Urine 6.0 - mg/L Microalbum Creatinine Ratio Ur 3.3 <30 - ug/ mg cr L ab:Hemoglobin A1c (Order Date - 05/06/2025) (Collection Date & Time - 05/06/2025 07:45 AM) Value Reference Range Hemoglobin A1c % 5.3 <6.0 - % Estimated Average Glucose 105 - mg/dL L ab:Complete Blood Count Auto Diff (Order Date - 05/06/2025) (Collection Date & Time - 05/06/2025 07:45 AM) Value Reference Range White Blood Count 4.4 L 4.8-10.8 - X10*3/uL Red Blood Count 4.92 4.60-5.80 - X10*6/uL Hemoglobin 14.8 14.0-18.0 - g/dl Hematocrit 43.3 42.0-52.0 - % Mean Corpuscular Volume 88.0 80.0-98.0 - fL Mean Corpuscular Hemoglobin 30.1 27.0-33.0 - pg Mean Corpuscular HGB Conc 34.2 31.0-36.0 - g/ dl Red Cell Distribution Width 12.2 11.0-16.0 - % Platelet Count 278 160-400 - X10*3/uL Mean Platelet Volume 9.6 9.4-12.4 - fL Neutrophils Percent Auto 61.2 45-73 - % Imm Gran Pct Auto 0.2 0.0-0.4 - % Lymphocytes Percent Auto 26.2 20-40 - % Monocytes Percent Auto 7.6 2-11 - % Eosinophils Percent Auto 3.7 0-4 - % Basophils Percent Auto 1.1 0-2 - % NRBC Pct Auto 0.0 0.0-0.2 - /100WBC Neutrophils Absolute Auto 2.7 2.0-8.3 - x10* 3/uL Imm Gran Abs Auto 0.01 0.00-0.03 - X10*3/uL Lymphocytes Absolute Auto 1.1 L 1.2-4.9 - X10* 3/uL Monocytes Absolute Auto 0.3 0.1-1.2 - X10*3/ uL Eosinophils Absolute Auto 0.2 0.0-0.4 - X10* 3/uL Basophils Absolute Auto 0.1 0.0-0.2 - X10*3/ uL NRBC Abs Auto 0.000 0.0-0.012 - X10*3/uL L ab:UA ClnCatch+Micro w/rflx Cult (Order Date - 05/06/2025) (Collection Date & Time - 05/06/2025 07:45 AM) Value Reference Range Color Urine Yellow - Appearance Urine Clear - PH 7.0 5.0-9.0 - Glucose Urine UA Negative Negative - mg/dL Urine Blood Negative Negative - Specific [place] - Urine 1.025 1.005-1.025 - Urine Protein [...] Casts Urine 0-2 0-2 - /LPF L ab:Comprehensive [place]. Panel Fast (Order Date - 05/06/2025) (Collection Date & Time - 05/06/2025 07:45 AM) Value Reference Range Sodium 140 135-145 - mmol/L Bilirubin Total 0.7 0.0-1.0 - mg/dL Aspartate Amino Transferase 21 5-37 - U/L Alanine Aminotransferase 18 0-40 - U/L Total Protein 6.7 6.5-8.0 - g/dL Albumin Level 4.2 3.5-5.0 - g/dL Alkaline Phosphatase 66 39-117 - U/L Potassium 4.4 3.3-5.1 - mmol/L Chloride 106 96-108 - mmol/L Carbon Dioxide 30 H 22-29 - mmol/L Anion Gap 8 L 12-20 - Blood Urea Nitrogen 14 9-16 - mg/dL Creatinine 1.12 0.5-1.4 - mg/dL Estimated Glomerular Filt Rate > 60 - Glucose Fasting 119 H 60-99 - mg/dL Calcium 9.0 8.4-10.2 - mg/dL * Examination: G eneral [...] prostate normal, stool guaiac negative. MALE GENITOURINARY: c ircumcised, no penile lesions or discharge. EXTREMITIES: n o clubbing, cyanosis, or edema. NEUROLOGIC: n onfocal, motor strength normal upper and lower extremities, sensory exam intact. Assessment: * Assessment: 1. A nnual physical exam - Z00.00 (Primary) 2 . E sophageal dysfunction - K22.4 3 . R eflux esophagitis - K21.00 4 . H ay fever - J30.1? 5. P ure hypercholesterolemia - E78.00 6 . E ssential hypertension - I10 7 . P rediabetes - R73.09 Plan: * Treatment: 2. E sophageal dysfunction Notes: is getting better so will observe for now 3. R eflux esophagitis Notes: is getting a little better 4. H ay fever Notes: doing well in spite of the difficult season 5. P ure hypercholesterolemia Notes: stable, 6. E ssential hypertension Continue Valsartan-hydroCHLOROthiazide Tablet, 160-12.5 MG, TAKE 1 TABLET BY MOUTH EVERY DAY. ? Notes: stable, will continue current regiment 7. P rediabetes Notes: stable, no need for medication at this time * Procedure Codes: * Follow Up: 6 Months * * Sign off status: Completed true * Provider: Gaston Hair MD Date: 0 05/13/2025 Generated for Danishi namrata/Spike/eTransmitting on: 1 01/14/2025 02:21 PM EST History and Physical Notes * HPI (History of Present Illness) Category Sub-Category Detail Notes Category Not es Symptom(s) patient is a 59 yo male here for annual visit with review of recent labs and follow upof chronic issues Depression Screening PHQ-9 Little inte rest or pleasure in doing things: Not at all had some discomfort in chest and had gotten bad vomiting all day long. since then has some tenderness in substernal area. went back on omeprazole and is getting better. spicy food bother. Feeling down, depressed, or hopeless: No t [...] really needed? Check all that apply:: None Communication Needs Communication Needs Does the patient [...] lesions EXTREMITIES: no clubbing, cyanosi s, or edema MALE GENITOURINARY: circumcised, no peni le lesions or discharge RECTAL EXAM: normal tone, no exte rnal hemorrhoids, no masses palpable, prostate normal, stool guaiac negative ORAL CAVITY: mucosa moist
--- OUTSIDE RECORDS SUMMARY | 2025-08-25 02:54 | XMS_ITS ---
Author Organization Parviz Hair MD Address [address] [place], [place] [id number] Care Team Providers Care Body Rolling Machine Tender Name Role Phone ReginaldoMaria Luisan Primary Care Provider [phone] REASON FOR VISIT ER Encounters Encounter Location Date Provider Diagnosis Parviz Hair MD [address] [facility] [address] [place] [phone] 08/25/2025 Parviz Hair Plan Of Treatment Next Appt Details Provider Name:Parviz curtis, 11/14/2025 09:00:00 AM, [address] [place] [address], Suite [facility], [place], [place], [phone], Provider Name:Parviz curtis, 05/14/2026 07:30:00 AM, [address] [place] [address], Suite [facility], [place], [place], [phone], Provider Name:Parviz curtis, 05/21/2026 01:00:00 PM, [address], [address], [place], [place], [phone], Progress Notes * Cullen CHAND JR, MDOB:[birth year] (60 yo M)Acc No.[id number]:08/25/2025 Patient: Barbara Cullen LUNDBERG JR :1965 A ge:60 Y S ex:Male Address:[address] [place] [address], [place] [address] * true * Date: Generated for Mary Jane ott/Spike/eTransmitting on: 01/14/2025 02:21 PM EST
--- OUTSIDE RECORDS SUMMARY | 2025-11-13 02:00 | XMS_ITS ---
Author Organization Parviz Hair MD Address [address] [place], [place] [id number] Care Team Providers Care Investigator Fraud Name Role Phone Reginaldo Parviz Primary Care Provider REASON FOR VISIT fasting lipids Encounters Encounter Location Date Provider Diagnosis Parviz Hair MD [address] [place] [phone] 11/13/2025 Parviz Hair Pure hypercholestero lemia E78.00 and Annual physical exam Z00.00 Assessments Encounter Date Diagnosis (ICD Code) Assessment Notes Treatment Notes Treatment Clinical Notes Section Notes 11/13/2025 Pure hypercholesterolemia (ICD-10 - E78.00) 11/13/2025 Annual physical exam (ICD-10 - Z00.00) Plan Of Treatment Pending Test Test Name Order Date Lipid Panel 11/13/2025 Next Appt Details Provider Name:Parviz munguiar, 11/14/2025 09:00:00 AM, [address], [address], [place], [place], [phone], Provider Name:Parviz Deutsch ier, 05/14/2026 07:30:00 AM, [address], [address], [place], [phone], Provider Name:Parviz Deutsch ier, 05/21/2026 01:00:00 PM, [address], [address], [place], [phone], Progress Notes * Cullen CHAND JR, MDOB:[birth year] (60 yo M)Acc No.[id number]:11/13/2025 Progress Note Patient: Barbara Cullen LUNDBERG JR Provider: Gaston Hair MD :1965 A ge:60 Y S ex:Male Date:11/13/2025 Address:[address] [place] [address], [facility] [id number] Subjective: * Chief Complaints: * 1 . Fasting lipids. * Medical History: Objective: * Vitals: Assessment: * Assessment: 1. P ure hypercholesterolemia - E78.00 (Primary) 2 . A nnual physical exam - Z00.00 Plan: * Treatment: * Procedure Codes: 3 6415 VENIPUNCT, ROUTINE* * * The named appointment provid er may or may not be the originator of this progress note, and it is not deemed complete until electronically signed by the appointment provider. Sign off status: Pending * Provider: Gaston Hair MD Date: 01/14/2025 Generated for Mary Jane ott/Spike/Zoesmitting on: 01/14/2025 02:21 PM EST
[2025-11-13 12:29] LABS: Cholesterol 242 mg/dL (<200); HDL Cholesterol 54 mg/dL (>40); Triglycerides 124 mg/dL (<150)
--- OUTSIDE RECORDS SUMMARY | 2025-11-13 14:22 | XMS_ITS | Patient Health Record ---
Author Organization Parviz Hair MD Address [address] [place], [place] [id number] Care Team Providers Care Last Model Department Supervisor Name Role Phone Parviz Hair Primary Care Provider Allergies Allergen (clinical drug ingredient) Drug/Non Drug Allergy documented on EMR Reaction Allergy Type Onset Date Status codeine codeine (uncoded) vomiting Allergy Ac tive Results Component Value Reference Range Notes Complete Blood Count Auto Di ff Reviewed date:05/11/2025 07:43:11 PM Interpretation: Performing Lab:[facility], [address] [place] [phone] Notes/Report: White Blood Count 4.4 4.8-10.8 X10*3/uL [...] NRBC Abs Auto 0.000 0.0-0.012 X10*3/uL Comprehensive [place]. Panel Fa st Reviewed date:05/11/2025 07:44:42 PM Interpretation: Performing Lab:[facility], [address] [place] [phone] Notes/Report: Sodium 140 135-145 mmol/L Potassium 4.4 [...] Panel Reviewed date:05/08/2025 12:40:34 PM Interpretation: Performing Lab:[address] [phone] Notes/Report: Triglycerides 135 <150 mg/dL Desirable Triglyceride: [...] (Free>4and<10) Reviewed date:05/08/2025 12:40:21 PM Interpretation: Performing Lab:[facility], [address] [place] [phone] Notes/Report: PSA,Total (Free>4and<10) 0.58 0.00-4.00 ng/mL A [...] Random Reviewed date:05/08/2025 12:40:14 PM Interpretation: Performing Lab:[facility], [address] [place] [phone] Notes/Report: Creatinine Urine 180.97 Microalbumin Urine 6.0 Microalbum/Creatinine Ratio Ur 3.3 <30 ug/mg cr Albumin/Creatinine Ratio Reference Ranges: Normal: < 30 ug/mg creatinine Microalbuminuria: 30 - 300 ug/mg creatinine Clinical Albuminuria: > 300 ug/mg creatinine Hemoglobin A1c Reviewed date:05/08/2025 12:40:54 PM Interpretation: Performing Lab:[facility], [address] [place] [phone] Notes/Report: Hemoglobin A1c % 5.3 <6.0 % [...] average glucose, using the formula of the G6T-Epnnrsg Average Glucose study (ADAG), Diabetes Care, Vol.31,#8, Jun. 2007 UA ClnCatch+Micro w/rflx Cul t Reviewed date:05/11/2025 07:42:41 PM Interpretation: Performing Lab:[facility], [address] [place] [phone] Notes/Report: Urine, Clean Catch Color Urine Yellow Appearance Urine Clear PH 7.0 5.0-9.0 Glucose Urine UA Negative Negative mg/dL Urine Blood Negative Negative Specific [place] - Urine 1.025 1.005-1.025 Urine Protein Negative [...] Problem Status W/U Status Risk Notes Problem 680282294 Lung nodule seen on imaging study (R91.1) Active confirmed Problem 818809345 Reflux esophagit is (K21.00) Active confirmed Problem 82830244 Essential hypert ension (I10) Active confirmed Problem 100447349 Mild intermitten t asthma without complication (J45.20) Active confirmed Problem 8206630 Prediabetes (R73.09) Active confirmed Problem Solitary nodule of lung (922579725) Lung nodule (R91.1) Active confirmed Problem 80472117 Hay fever (J30.1) Active confirmed Problem 797377995 Pure hypercholesterolemia (E78.00) Active confirmed Problem 706089047 Skin cancer, bas al cell (C44.91) Active confirmed Problem Diffuse spasm of esophagus (09590715) Esophageal dysfunction (K22.4) Active confirmed Problem 588411951 Seasonal allergi c rhinitis, unspecified trigger (J30.2) Active confirmed Problem 222293532 Abnormality 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) Active [...] Diagnosis Parviz Hair MD [address] [place] [phone] 05/06/2025 Parviz Hair Blood tests for rout ine general physical examination Z00.00 ; Essential hypertension I10 ; Pure hypercholesterolemia E78.00 and Prediabetes R73.09 Parviz Hair MD [address] [place] [address] Drive [address] [place] [phone] 11/13/2025 Parviz Hair Pure hypercholestero lemia E78.00 and Annual physical exam Z00.00 Parviz Hair MD [address] [place] [address] [phone] 12/26/2024 Parviz Hair Tenderness of chest wall R07.89 Parviz Hair MD [address] [place] [address] Drive [address] [place] [id number] 05/13/2025 Parviz Hair Annual physical exam Z00.00 ; Esophageal dysfunction K22.4 ; Reflux esophagitis K21.00 ; Hay fever J30.1 ; Pure hypercholesterolemia E78.00 ; Essential hypertension I10 and Prediabetes R73.09 Parviz Hair MD [address] [place] [address] [phone] 08/25/2025 Parviz Hair Assessments Encounter Date Diagnosis (ICD Code) Assessment Notes Treatment Notes Treatment Clinical Notes Section Notes 05/06/[address] tests [address] ine general physical examination (ICD-10 - Z00.00) 11/13/2025 Pure hypercholesterolemia (ICD-10 - E78.00) 12/26/2024 Tenderness of chest wall (ICD-10 - R07.89) will just observe/ not having any exertional pain and is there subtly at all times. came on after turing over in bed and seems that is worse on palpation.not with any symptosn that sound cardiac. will observe 05/13/2025 Annual physical exam (ICD-10 - Z00.00) labs reviewed and discussed with patient 05/13/2025 Esophageal dysfuncti on (ICD-10 - K22.4) is getting better so will observe for now 05/06/2025 Essential hypertensi on (ICD-10 - I10) 11/13/2025 Annual physical exam (ICD-10 - Z00.00) 05/13/2025 Reflux esophagitis (ICD-10 - K21.00) is [...] (EKG) 04/26/2016 Complete Blood Count Auto Diff Comprehensive [place]. Panel Fast Lipid Panel 05/06/2025 PSA,Total (Free>4and<10) 05/06/2025 Microalbumin, Random 05/06/2025 CT chest wo con 02/24/2023 Hemoglobin A1c 05/06/2025 UA ClnCatch+Micro w/rflx Cult 05/06/2025 Lipid Panel 11/13/2025 Future Test Test Name Order Date CT chest w con 08/29/2023 Next Appt Details Provider Name:Parviz Deutsch ier, 11/14/2025 09:00:00 AM, [address], [address], [place], [place], [phone], Provider Name:Parviz Deutsch ier, 05/14/2026 07:30:00 AM, [address], [address], [place], [place], [phone], Provider Name:Parviz Deutsch ier, 05/21/2026 01:00:00 PM, [address], [address], [place], [place], [phone], Insurance Providers Payer Name Payer Address Payer Phone Subscriber Number Group Number Insured Name Patient Relationship to Insured Coverage Start Date Coverage End Date [employer] [address] [place], [place] [phone] [id number] Cullen Ryan Jr Self - patient is [...]
== END 2025-11-13 11:01 | disposition home or self-care (01) ==
LOC: HO.LNP 11:00
PROVIDERS: Visit Provider Internal Medicine
DX: Z00.00 Encounter for general adult medical examination without abnormal findings (principal)
CPT/HCPCS: 80061